=== PATIENT | female | born 1970 | race Caucasian/White ===

== ENCOUNTER → 2022-01-24 17:04 | Outpatient (CLI) | payer BC, SELFPAY ==
--- OUTSIDE RECORDS SUMMARY | 2022-01-24 17:10 | XMS_ITS | Encounter Summary ---
:1970 Author Organization [facility] Address [address] [place], [place] [id number] Care Team Providers Name Role Phone SantinoKrystle al ASHIA Primary Care Provider Encounter Details Date Type Department Care Team Description 03/23/2021 Travel Social History Tobacco Use Types Packs/Day Years Used Date Never Smoker Smokeless Tobacco: Never Used Alcohol Use Standard Drinks/Week Comments Yes 2 (1 standard drink = 0.6 oz pure alcoho l) couple of times weekly Alcohol Habits Answer Date Recorded How often do you have a drink containing 2-3 times a week 03/23/2021 alcohol? How many drinks containing alcohol do you have 1 or 2 03/23/2021 on a typical day when you are drinking? How often do you have six or more drinks on one Never 03/23/2021 occasion? Comment: couple of times weekly 03/23/2021 Social Isolation Answer Date Recorded In a typical week, how many times do you More than three luis alberto es a week 03/23/2021 talk on the phone with family, friends, or neighbors? How often do you get together with friends Twice a week 03/23/2021 or relatives? How often do you attend oriental orthodox or Never 2020 sikh services? Do you belong to any clubs or Yes 03/23/2021 organizations such as oriental orthodox groups, unions, fraternal or athletic groups, or school groups? How often do you attend meetings of the More than 4 times pe r year 03/23/2021 clubs or organizations you belong to? Are you now , , , 03/23/2021 , never or living with a partner? Physical Activity Answer Date Recorded On average, how many days per week do you engage in moderate to 4 days 03/23/2021 strenuous exercise (like walking fast, running, jogging, dancing, swimming, biking, or other activities that cause a light or heavy sweat)? On average, how many minutes do you engage in exercise at th is 50 min 03/23/2021 level? Stress Answer Date Recorded Do you feel stress - tense, restless, nervous, or Only a lit tle 03/23/2021 anxious, or unable to sleep at night because your mind is troubled all the time - these days? Financial Resource Strain Answer Date Recorded How hard is it for you to pay for the very basics like Not h deena at all 03/23/2021 food, housing, medical care, and heating? Intimate Partner Violence Answer Date Recorded Within the last year, have you been afraid of your partner o r No 03/23/2021 ex-partner? Within the last year, have you been humiliated or emotionall y No 03/23/2021 abused in other ways by your partner or ex-partner? Within the last year, have you been kicked, hit, slapped, or No 03/23/2021 otherwise physically hurt by your partner or ex-partner? Within the last year, have you been raped or forced to have any No 03/23/2021 kind of sexual activity by your partner or ex-partner? Food Insecurity Answer Date Recorded Within the past 12 months, you worried that your food would Never true 03/23/2021 run out before you got money to buy more. Within the past 12 months, the food you bought just didn't N ever true 03/23/2021 last and you didn't have money to get more. Transportation Needs Answer Date Recorded In the past 12 months, has lack of transportation kept you f rom No 03/23/2021 medical appointments or from getting medications? In the past 12 months, has lack of transportation kept you f rom No 03/23/2021 meetings, work, or getting things needed for daily living? Housing Stability Answer Date Recorded In the last 12 months, was there a time when you were not ab le No 03/23/2021 to pay the mortgage or rent on time? In the last 12 months, how many places have you lived? 1 03/23/2021 In the last 12 months, was there a time when you did not hav e a No 03/23/[address] to sleep or slept in a residential (including now)? Sex Assigned at Date Recorded Not on file COVID-19 Exposure Response Date Recorded In the last month, have you been in contact with No / Unsure 03/23/2021 12:55 PM EDT someone who was confirmed or suspected to have Coronavirus / COVID-19? documented as of this encounter Plan of Treatment Upcoming Encounters Date Type Specialty Care Team Description 03/24/2022 Office Visit Family Medicine Krystle De F NP [address] [place] [address] 2022 (Wo rk) documented as of this encounter Visit Diagnoses Not on filedocumented in this encounter Care Teams Bag Turner Relationship Specialty Start Date End Date Krystle De FNP PCP - General Nurse Practitioner 02/05/[address] [place] [phone] documented as of this encounter
--- OUTSIDE RECORDS SUMMARY | 2022-01-24 17:10 | XMS_ITS | Encounter Summary ---
:1970 Author Organization [facility] Address [address] [place], [place] [id number] Care Team Providers Name Role Phone SantinoKrystle al ASHIA Primary Care Provider Encounter Details Date Type Department Care Team Description 03/25/2021 Travel Social History Tobacco Use Types Packs/Day [...] or relatives? How often do you attend mormonism or Never 2020 presybeterian services? Do you belong to any clubs or Yes 03/23/2021 organizations such as mormonism groups, unions, fraternal or athletic groups, or [...] place to sleep or slept in a intermediate (including now)? Sex Assigned at Date Recorded Not on file COVID-19 Exposure Response Date Recorded In the last month, have you been in contact with No / Unsure 03/25/2021 7:18 AM EDT someone who was confirmed or suspected to have Coronavirus / COVID-19? documented as of this encounter Plan of Treatment Upcoming Encounters Date Type Specialty Care Team Description 03/24/2022 Office Visit Family Medicine Krystle De F NP [address] [place] [phone] (Wo rk) documented as of this encounter Visit Diagnoses Not on filedocumented in this encounter Care Teams Dev Ops Engineer Relationship Specialty Start Date End Date Krystle De FNP PCP - General Nurse Practitioner 02/05/[address] [place] [id number] documented as of this encounter
--- OUTSIDE RECORDS SUMMARY | 2022-01-24 17:10 | XMS_ITS | Encounter Summary ---
:1970 Author Organization [facility] Address [address] [place] [address] Care Team Providers Name Role Phone Krystle De Primary Care Provider Reason for Visit Reason Comments Annual Exam Encounter Details Date Type Department Care Team Description 03/23/[address] [facility] Krystle Marte FNP Routine medical exam (Primary Dx); [address] [place] [address] [phone] Social History Tobacco Use Types Packs/Day Years [...] or relatives? How often do you attend yazidi or Never 2020 jehovah's witness services? Do you belong to any clubs or Yes 03/23/2021 organizations such as yazidi groups, unions, fraternal or athletic groups, or [...] place to sleep or slept in a alf (including now)? Sex Assigned at Date Recorded Not on file COVID-19 Exposure Response Date Recorded In the last month, have you been in contact with No / Unsure 03/23/2021 12:55 PM EDT someone who was confirmed or suspected to have Coronavirus / COVID-19? documented as of this encounter Last Filed Vital Signs Vital Sign Reading Time Taken Comments Blood Pressure 122/78 03/23/2021 1:04 PM EDT Pulse 69 03/23/2021 1:04 PM EDT Temperature 36.2 ??C (97.1 ??F) 03/23/2021 1:04 PM EDT Respiratory Rate 16 03/23/2021 1:04 PM EDT Oxygen Saturation 98% 03/23/2021 1:04 PM EDT Inhaled Oxygen Concentration - - Weight 63.5 kg (140 lb) 03/23/2021 1:04 PM EDT Height 171.5 cm (5' 7.5) 03/23/2021 1:04 PM EDT Body Mass Index 21.6 03/23/2021 1:04 PM EDT documented in this encounter Patient Instructions Patient InstructionsSuASHIA Abrams - 03/23/2021 1:00 PM EDT pls get blood work done Will refer for colonoscopy Doing well F/u here in one year, sooner if problems or concerns documented in this encounter Progress Notes ASHIA Wall - 03/23/2021 1:00 PM EDT Subjective Patient ID: Trina Chandana is a 50 y.o. female. Chief Complaint Patient presents with ??? Annual Exam Here for PE Feeling well no chest pain or SOB no dizziness or headaches no nausea, vomiting, no change in bowels The following portions of the patient's chart were reviewed in this encounter and updated as appropriate: Tobacco Allergies Meds Problems Med Hx Surg Hx Fam Hx Review of Systems Constitutional: Negative. HENT: Negative. Respiratory: Negative. Cardiovascular: Negative. Neurological: Negative. Psychiatric/Behavioral: Negative. Objective Physical Exam Vitals and nursing note reviewed. Constitutional: Appearance: Normal appearance. HENT: Head: Normocephalic and atraumatic. Right Ear: Tympanic membrane, ear canal and external ear normal. Left Ear: Tympanic membrane, ear canal and external ear normal. Nose: Nose normal. Mouth/Throat: Mouth: Mucous membranes are moist. Pharynx: Oropharynx is clear. Eyes: Conjunctiva/sclera: Conjunctivae normal. Pupils: Pupils are equal, round, and reactive to light. Cardiovascular: Rate and Rhythm: Normal rate and regular rhythm. Pulses: Normal pulses. Heart sounds: Normal heart sounds. Pulmonary: Effort: Pulmonary effort is normal. Breath sounds: Normal breath sounds. Abdominal: General: Abdomen is flat. Bowel sounds are normal. Palpations: Abdomen is soft. Tenderness: There is no abdominal tenderness. Musculoskeletal: General: Normal range of motion. Cervical back: Neck supple. Lymphadenopathy: Cervical: No cervical adenopathy. Skin: General: Skin is warm and dry. Neurological: General: No focal deficit present. Mental Status: She is alert and oriented to person, place, and time. Psychiatric: Mood and Affect: Mood normal. Behavior: Behavior normal. Thought Content: Thought content normal. Judgment: Judgment normal. Assessment/Plan Diagnoses and all orders for this visit: Routine medical exam - CBC and differential; Future - Comprehensive metabolic panel; Future - Lipid panel; Future - TSH; Future Colon cancer screening - Ambulatory referral to Gastroenterology; Future documented in this encounter Plan of Treatment Upcoming Encounters Date Type Specialty Care Team Description 03/24/2022 Office Visit Family Medicine Krystle De F NP [address] [place] [address] (Wo rk) documented as of this encounter Results TSH (03/25/2021 7:39 AM EDT) athologist Signature TSH 1.46 0.36 - 3.74 03/25/2021 [facility] uIU/ml 9:49 AM EDT Comment: Concentrations of Biotin above 100 ng/mL can potentially result in interference. The above 1 analytes were performed by [facility] [address] [place] [address],[id number],[place] [address] Specimen Anatomical Collection Method Collection Time Receive d Time (Source) Location / / Volume Laterality Serum or Plasma 03/25/2021 7:39 AM 2020 9:22 EDT AM EDT K[facility]le De [facility] Performing Organization Address City/State/ZIP Code Phon e Number [facility] [address] [place] [address] OPHELIA NEGRON MD Lipid panel (03/25/2021 7:39 AM EDT) athologist Signature Triglycerides 64 30 - 200 03/25/2021 [facility] mg/dl 9:49 AM EDT LABORATORIES Comment: N-Acetylcysteine (NAC) and Metamizole bynum ve the potential to falsely depress Triglyceride results. ?? Baseline values before medication admins tration are recommended. Cholesterol 118 0 - 200 mg/dl 03/25/2021 9:49 AM EDT [facility] HDL Cholesterol 64 30 - 85 mg/dl 03/25/2021 9:49 AM E DT [facility] Comment: N-Acetylcysteine (NAC) and Metamizole bynum ve the potential to falsely depress HDL Cholesterol results. ?? Baseline values before medication admins tration are recommended. LDL Cholesterol 41.2 0.0 - 100.0 03/25/2021 9:49 AM [facility] mg/dl EDT Cholesterol/ HDL Ratio 1.8 0.0 - 5.0 03/25/2021 9:49 A M [facility] EDT LDL/HDL Ratio 0.6 03/25/2021 9:49 AM [facility] EDT Comment: The above 6 analytes were performed by [facility] [address] [facility], ,[place] [address] Specimen Anatomical Collection Method Collection Time Receive d Time (Source) Location / / Volume Laterality Serum or Plasma 03/25/2021 7:39 AM 2020 9:22 EDT AM EDT Krystle De [facility] BLOOD ORDERABLES Performing Organization Address City/State/ZIP Code Phon e Number [facility] [address] [place] [address] OPHELIA NEGRON MD (ABNORMAL) Comprehensive metabolic panel (03/25/2021 7:39 AM EDT) P athologist Signature AST 11 (L) 15 - 37 03/25/2021 [facility] IU/L 9:49 AM EDT Comment: Sulfasalazine and sulfapyridine have the potential to falsely depress Aspartate Aminotransferase results. ?? Baseline values before medication admini stration are recommended. ALT 13 13 - 56 IU/L 03/25/2021 9:49 AM EDT [facility] Comment: Sulfasalazine and sulfapyridine have the potential to falsely depress Alanine Aminotransferase results. ?? Baseline values before medication admini stration are recommended. Alkaline Phosphatase 58 50 - 136 mIU/ml 03/25/2021 9: 49 AM [facility] EDT Total Bilirubin 0.50 0.20 - 1.00 mg/dl 03/25/2021 9:49 AM [facility] EDT Blood Urea Nitrogen 13 7 - 18 mg/dl 03/25/2021 9:49 A M [facility] EDT Creatinine 0.80 0.51 - 0.95 mg/dl 03/25/2021 9:49 AM [facility] EDT Comment: N-Acetylcysteine (NAC) and Metamizole bynum ve the potential to falsely depress Creatinine results. ?? Baseline values before medication admins tration are recommended. Patients undergoing treatment with pheni ndione will have falsely depressed results. Patients on phenindione therapy should b e tested with an alternative CREA method. Toxic levels of acetaminophen may lead t o falsely depressed results for patient samples. Glomerular Filtration 76.00 mL/min/1.73m2 03/25/2021 9:4 9 AM [facility] Rate EDT Comment: GFR Reference Ranges: Normal Function or Mild Renal Disease,i f clinically at risk: >or= 60 Moderately decreased: 30 - 59 Severely decreased: 15 - 29 Renal Failure: <15 Please note that the MDRD equation requi res an additional adjustment for -Americans (multiply the GFR resu lt by 1.210). Glomarular Filtration Rate (GFR) is jeffrey mated based on the MDRD equation, which assumes a steady state f or creatinine (Rand Int Med 139/2 137-149, 2002), as r ecommended by the National Kidney Disease Education Program in conj unction with the National Institutes of Health a nd the National Kidney Foundation. The Edwards method used in terence culating this result is traceable to IDMS standards. Glucose 78 70 - 110 mg/dl 03/25/2021 9:49 AM EDT [facility] Comment: Sulfasalazine has the potential to false ly depress Glucose results. Sulfapyridine has the potential to false ly elevate Glucose results. Baseline values before medication admini stration are recommended. Calcium 9.2 8.5 - 10.1 mg/dl 03/25/2021 9:49 AM EDT [facility] Total Protein 7.0 6.4 - 8.2 g/dl 03/25/2021 9:49 AM ED T [facility] Albumin 4.0 3.4 - 5.0 g/dl 03/25/2021 9:49 AM EDT [facility] Sodium 140 136 - 145 mEq/L 03/25/2021 9:49 AM EDT [facility] Potassium 4.2 3.5 - 5.1 mEq/L 03/25/2021 9:49 AM EDT [facility] Chloride 107.0 98.0 - 107.0 mEq/L 03/25/2021 9:49 AM ED T [facility] Carbon Dioxide 28.4 21.0 - 32.0 mMol/L 03/25/2021 9: 49 AM EDT [facility] Anion Gap 8.8 7.0 - 15.0 03/25/2021 9:49 AM EDT [facility] Comment: The above 16 analytes were performed by [facility] [address] [facility] [id number],[place] [address] Specimen Anatomical Collection Method Collection Time Receive d Time (Source) Location / / Volume Laterality Serum or Plasma 03/25/2021 7:39 AM 2020 9:22 EDT AM EDT Krystle Santino [facility] BLOOD ORDERABLES Performing Organization Address City/State/ZIP Code Phon e Number [facility] [place] [address] OPHELIA NEGRON MD (ABNORMAL) CBC and differential (03/25/2021 7:39 AM EDT) [facility] Method Time Signature WBC 4.33 (L) 4.80 - 03/25/2021 [facility] 10.00 9:45 AM EDT LABORATORIES x1000/ul RBC 4.58 4.20 - 03/25/2021 [facility] 5.40 9:45 AM EDT LABORATORIES x1Mil/ul Hemoglobin 13.7 12.0 - 03/25/2021 [facility] 16.0 g/dl 9:45 AM EDT LABORATORIES Hematocrit 42.0 37.0 - 03/25/2021 [facility] 47.0 % 9:45 AM EDT LABORATORIES MCV 91.7 81.0 - 03/25/2021 [facility] 99.0 fL 9:45 AM EDT LABORATORIES MCH 29.9 27.0 - 03/25/2021 [facility] 31.0 pg 9:45 AM EDT LABORATORIES MCHC 32.6 32.2 - 03/25/2021 [facility] 37.0 g/dl 9:45 AM EDT LABORATORIES RDW 13.1 11.5 - 03/25/2021 [facility] 14.5 % 9:45 AM EDT LABORATORIES Platelet Count 202 130 - 400 03/25/2021 [facility] x1000/ul 9:45 AM EDT LABORATORIES MPV 10.4 9.4 - 03/25/2021 [facility] 12.4 fL 9:45 AM EDT LABORATORIES Neutrophils 39.4 (L) 40.0 - 03/25/2021 [facility] 74.0 % 9:45 AM EDT LABORATORIES Lymphocytes 44.3 19.0 - 03/25/2021 [facility] 48.0 % 9:45 AM EDT LABORATORIES Monocytes 12.7 (H) 3.4 - 9.0 03/25/2021 [facility] % 9:45 AM EDT LABORATORIES Eosinophils 1.8 0.0 - 7.0 03/25/2021 [facility] % 9:45 AM EDT LABORATORIES Basophils 1.6 0.0 - 2.0 03/25/2021 [facility] % 9:45 AM EDT LABORATORIES Immature 0.2 0.0 - 0.5 03/25/2021 [facility] Granulocytes % 9:45 AM EDT LABORATORIES Nucleated RBCs 0.00 0.00 - 03/25/2021 [facility] 0.20 % 9:45 AM EDT LABORATORIES Abs. Neutrophils 1.70 (L) 1.92 - 03/25/2021 [facility] 8.31 9:45 AM EDT LABORATORIES x1000/ul Abs. Lymphocyte 1.92 1.20 - 03/25/2021 [facility] 3.70 9:45 AM EDT LABORATORIES x1000/ul Abs. Monocytes 0.55 0.14 - 03/25/2021 [facility] 0.97 9:45 AM EDT LABORATORIES x1000/ul Abs. 0.08 0.00 - 03/25/2021 [facility] ??Eosinophils 0.76 9:45 AM EDT LABORATORIES x1000/ul Abs. ??Basophils 0.07 0.00 - 03/25/2021 [facility] 0.22 9:45 AM EDT LABORATORIES x1000/ul Abs. Immature 0.01 0.00 - 03/25/2021 [facility] Gran. 0.02 9:45 AM EDT LABORATORIES x1000/ul Abs. Nucleated 0.00 0.00 - 03/25/2021 [facility] RBCs 0.02 9:45 AM EDT LABORATORIES x1000/ul Comment: The above 24 analytes were performed by [facility] [address] [place] [address],[facility]#: [id number],[place] [address] Specimen Anatomical Collection Method Collection Time Receive d Time (Source) Location / / Volume Laterality Whole Blood 03/25/2021 7:39 AM 9:22 EDT AM EDT [facility] LAB BLOOD ORDERABLES Performing Organization Address City/State/ZIP Code Phon e Number [facility] [address] [place] [address] OPHELIA NEGRON MD documented in this encounter Visit Diagnoses Diagnosis Routine medical exam - Primary Routine general medical examination [facility] a [facility] Colon cancer screening Special screening for malignant neoplasm s, colon documented in this encounter Care Teams High School Business Teacher Relationship Specialty Start Date End Date Krystle De FNP PCP - General Nurse Practitioner 02/05/[address] [place] [id number] documented as of this encounter
--- OUTSIDE RECORDS SUMMARY | 2022-01-24 17:10 | XMS_ITS | Encounter Summary ---
:1970 Author Organization [facility] Address [address] [place], [place] [address] Care Team Providers Name Role Phone Santino Krystle ASHIA Primary Care Provider Encounter Details Date Type Department Care Team Description 03/25/2021 Hospital Encounter [facility] Routine medical exam [facility] [address] [place] [address] [phone] Social History Tobacco Use Types Packs/Day Years [...] or relatives? How often do you attend sabianist or Never 2020 denominational services? Do you belong to any clubs or Yes 03/23/2021 organizations such as sabianist groups, unions, fraternal or athletic groups, or [...] / COVID-19? documented as of this encounter Medications at Time of Discharge Medication Sig Dispensed Refills Start Date End Date mv-min/iron/folic/calcium/v Take 1 tablet by 0 itK (WOMEN'S MULTIVITAMIN mouth 1 (one) time ORAL) each day. documented as of this encounter Plan of Treatment Upcoming Encounters Date Type Specialty Care Team Description 03/24/2022 Office Visit Family Medicine Krystle De F NP [address] [place] [address] (Wo rk) documented as of this encounter Procedures Procedure Name Priority Date/Time Associated Comments Diagnosis HC CBC W/ DIFFERENTIAL Routine 03/25/2021 7:39 AM Routine medi terence Results for this EDT exam procedure are i n the results section. TSH Routine 03/25/2021 7:39 AM Routine medical Result s for this EDT exam procedure are i n the results section. LIPID PANEL Routine 03/25/2021 7:39 AM Routine medical Result s for this EDT exam procedure are i n the results section. COMPREHENSIVE Routine 03/25/2021 7:39 AM Routine medical Resul ts for this METABOLIC PANEL EDT exam procedure ar e in the results section. documented in this encounter Results TSH (03/25/2021 7:39 AM EDT) athologist Signature TSH 1.46 0.36 - 3.74 03/25/2021 [facility] uIU/ml 9:49 AM EDT Comment: Concentrations of Biotin above 100 ng/mL can potentially result in interference. The above 1 analytes were performed by [facility] [address] [place] [address], ,[place] [address] Specimen Anatomical Collection Method Collection Time Receive d Time (Source) Location / / Volume Laterality Serum or Plasma 03/25/2021 7:39 AM 2020 9:22 EDT AM EDT Krystle Santino [facility] BLOOD ORDERABLES Performing Organization Address [facility] Phon e Number [facility] [address] [place] [address] OPHELIA NEGRON MD Lipid panel (03/25/2021 7:39 AM EDT) P athologist Signature Triglycerides 64 30 - 200 03/25/2021 [facility] mg/dl 9:49 AM EDT LABORATORIES Comment: N-Acetylcysteine (NAC) and Metamizole bynum ve the potential to falsely depress Triglyceride results. ?? Baseline values before medication admins tration are recommended. Cholesterol 118 0 - 200 mg/dl 03/25/2021 9:49 AM EDT [facility] HDL Cholesterol 64 30 - 85 mg/dl 03/25/2021 9:49 AM E DT [facility] Comment: N-Acetylcysteine (NAC) and Metamizole bynum ve the potential to falsely depress HDL Cholesterol results. ?? Baseline values before medication admins tration are recommended. LDL Cholesterol 41.2 0.0 - 100.0 03/25/2021 9:49 AM [facility] mg/dl EDT Cholesterol/ HDL Ratio 1.8 0.0 - 5.0 03/25/2021 9:49 A M [facility] EDT LDL/HDL Ratio 0.6 03/25/2021 9:49 AM [facility] EDT Comment: The above 6 analytes were performed by [facility] [address] [place] [address], ,[place] [address] Specimen Anatomical Collection Method Collection Time Receive d Time (Source) Location / / Volume Laterality Serum or Plasma 03/25/2021 7:39 AM 2020 9:22 EDT AM EDT Krystle De [facility] BLOOD ORDERABLES Performing Organization Address City/[facility] Phon e Number [facility] [address] [place] [address] OPHELIA NEGRON MD (ABNORMAL) Comprehensive metabolic panel (03/25/2021 7:39 AM EDT) P athologist Signature AST 11 (L) 15 - 37 03/25/2021 [facility] IU/L 9:49 AM EDT Comment: Sulfasalazine and sulfapyridine have the potential to falsely depress Aspartate Aminotransferase results. ?? Baseline values before medication admini stration are recommended. ALT 13 13 - 56 IU/L 03/25/2021 9:49 AM EDT [facility] Comment: Sulfasalazine and sulfapyridine have the potential to falsely depress Alanine Aminotransferase results. ?? Baseline values before medication admini stration are recommended. Alkaline Phosphatase 58 50 - 136 mIU/ml 03/25/2021 9: 49 AM [facility] EDT Total Bilirubin 0.50 0.20 - 1.00 mg/dl 03/25/2021 9:49 AM [facility] EDT Blood Urea Nitrogen 13 7 - 18 mg/dl 03/25/2021 9:49 A M [facility] EDT Creatinine 0.80 0.51 - 0.95 mg/dl 03/25/2021 9:49 AM [facility] EDT Comment: N-Acetylcysteine (NAC) and [...] Filtration 76.00 mL/min/1.73m2 03/25/2021 9:4 9 AM [facility] Rate EDT Comment: GFR Reference Ranges: [...] a nd the National Kidney Foundation. The Mcdonald method used in terence culating this result is traceable to IDMS standards. Glucose 78 70 - 110 mg/dl 03/25/2021 9:49 AM EDT [facility] Comment: Sulfasalazine has the potential to false ly depress Glucose results. Sulfapyridine has the potential to false ly elevate Glucose results. Baseline values before medication admini stration are recommended. Calcium 9.2 8.5 - 10.1 mg/dl 03/25/2021 9:49 AM EDT [facility] Total Protein 7.0 6.4 - 8.2 g/dl 03/25/2021 9:49 AM ED T [facility] Albumin 4.0 3.4 - 5.0 g/dl 03/25/2021 9:49 AM EDT [facility] Sodium 140 136 - 145 mEq/L 03/25/2021 9:49 AM EDT [facility] Potassium 4.2 3.5 - 5.1 mEq/L 03/25/2021 9:49 AM EDT [facility] Chloride 107.0 98.0 - 107.0 mEq/L 03/25/2021 9:49 AM ED T [facility] Carbon Dioxide 28.4 21.0 - 32.0 mMol/L 03/25/2021 9: 49 AM EDT [facility] Anion Gap 8.8 7.0 - 15.0 03/25/2021 9:49 AM EDT [facility] Comment: The above 16 analytes were performed by [facility] [address] [place] [address], ,[place] [address] Specimen Anatomical Collection Method Collection Time Receive d Time (Source) Location / / Volume Laterality Serum or Plasma 03/25/2021 7:39 AM 2020 9:22 EDT AM EDT Krystle De [facility] BLOOD ORDERABLES Performing Organization Address City/State/ZIP Code Phon e Number [facility] [address] [place] [address] OPHELIA NEGRON MD (ABNORMAL) CBC and differential (03/25/2021 7:39 AM EDT) [facility] Method Time Signature WBC 4.33 (L) [...] The above 24 analytes were performed by [facility] [address] [place] [address],[facility] [id number],[place] [address] Specimen Anatomical Collection Method Collection Time Receive d Time (Source) Location / / Volume Laterality Whole Blood 03/25/2021 7:39 AM 9:22 EDT AM EDT Krystle [facility] LAB BLOOD ORDERABLES Performing Organization Address City/State/ZIP Code Phon e Number [facility] [address] [place] [address] OPHELIA NEGRON MD documented in this encounter Visit Diagnoses Diagnosis Routine medical exam Routine general medical examination at a health care facility documented in this encounter Care Teams Supervisor Paste Mixing Relationship Specialty Start Date End Date Krystle De FNP PCP - General Nurse Practitioner 02/05/[address] [place] [phone] documented as of this encounter
--- OUTSIDE RECORDS SUMMARY | 2022-01-24 17:10 | XMS_ITS | Encounter Summary ---
:1970 Author Organization [facility] Address [address] [place] [address] Care Team Providers Name Role Phone Krystle De Primary Care Provider Encounter Details Date Type Department Care Team Description 04/01/2020 Telephone [facility] Krystle Marte FNP [address] [facility] [address] [place] [address] [phone] (Wo rk) Social History Tobacco Use Types Packs/Day Years Used Date Never Assessed Alcohol Habits Answer Date Recorded How often do you have a drink containing alcohol? 2-3 times a week 03/23/2021 How many drinks containing alcohol do you have on a 1 or 2 03/23/2021 typical day when you are drinking? How often do you have six or more drinks on one Never 03/23/2021 occasion? Comment: Not asked Social Isolation Answer Date Recorded In a typical week, how many times do you More than three luis alberto es a week 03/23/2021 talk on the phone with family, friends, or neighbors? How often do you get together with friends Twice a week 03/23/2021 or relatives? How often do you attend restorationism or Never 2020 voodoo services? Do you belong to any clubs or Yes 03/23/2021 organizations such as restorationism groups, unions, fraternal or athletic groups, or [...] place to sleep or slept in a fdc (including now)? Sex Assigned at Date Recorded Not on file documented as of this encounter Miscellaneous Notes Telephone Encounter - Sharona Pineda RN - 04/01/2020 2:07 PM EDT Sending out a letter documented in this encounter Plan of Treatment Upcoming Encounters Date Type Specialty Care Team Description 03/24/2022 Office Visit Family Medicine Krystle De F NP [address] [place] [address] (Wo rk) documented as of this encounter Visit Diagnoses Not on filedocumented in this encounter Care Teams Insurance Adviser Relationship Specialty Start Date End Date Krystle De FNP PCP - General Nurse Practitioner 02/05/[address] [place] [phone] documented as of this encounter
--- OUTSIDE RECORDS SUMMARY | 2022-01-24 17:10 | XMS_ITS | Clinical Summary ---
:1970 Author Organization [facility] Address [address] [place], [place] [id number] Care Team Providers Name Role Phone Krystle De Primary Care Provider Allergies No known active allergies Medications Medication Sig Dispensed Refills Start Date End Date Status mv-min/iron/folic/calci Take 1 tablet by 0 Active um/vitK (WOMEN'S mouth 1 (one) MULTIVITAMIN ORAL) time each day. Active Problems Problem Noted Date Routine medical exam 03/23/2021 Dense breasts 03/23/2021 Immunizations Name Administration Dates Next Due Pfizer SARS-CoV-2 Vaccination Adult (Purple Cap) 10/17/2020, 09/26/2020 Td 03/23/2015 Family History Medical History Relation Comments No Known Problems Brother No Known Problems Daughter Heart disease Father Dementia Mother Cancer Sister breast cancer 5 year s ago Relation Status Comments Brother Alive Daughter Alive Father (Age 86) Mother Alive Sister Alive Social History Tobacco Use Types Packs/Day Years [...] or relatives? How often do you attend orthodoxy or Never 2020 judaism services? Do you belong to any clubs or Yes 03/23/2021 organizations such as orthodoxy groups, unions, fraternal or athletic groups, or [...] place to sleep or slept in a halfway (including now)? Sex Assigned at Date Recorded Not on file Last Filed Vital Signs Vital Sign Reading [...] Mass Index 21.6 03/23/2021 1:04 PM EDT Plan of Treatment Upcoming Encounters Date Type Specialty Care Team Description 03/24/2022 Office Visit Family Medicine Krystle De F NP [address] [place] [address] (Wo rk) Health Maintenance Due Date Last Done Comments Colonoscopy 1970 Colorectal Cancer Screening 1970 FIT-DNA 1970 FOBT Annual 1970 Sigmoidoscopy 1970 MMR Vaccines (1 of 1 - 12/25/1971 Standard series) Varicella Vaccines (1 of 2 - 12/25/1971 2-dose childhood series) Pneumococcal Vaccine: 65+ 1976 Years (1 of 4 - PCV13) DTaP,Tdap,and Td Vaccines (2 04/20/2015 03/23/2015 - Tdap) COVID-19 Vaccine (3 - Pfizer 11/14/2020 10/17/2020, 021 risk 4-dose series) Influenza Vaccine (Season 03/10/2022 Ended) Mammogram (every 2 years) 03/17/2022 03/17/2020, 06/23/2016 , 01/07/2016, Additional history exists Cervical Cancer Screening 09/20/2022 09/20/2017, 09/20/2017 HIB Vaccines Aged Out No longer eligib le based on patient 's age to complete this topic Hepatitis A Vaccines Aged Out No longer e ligible based on patient 's age to complete this topic Hepatitis B Vaccines Aged Out No longer e ligible based on patient 's age to complete this topic IPV Vaccines Aged Out No longer eligib le based on patient 's age to complete this topic Insurance Payer Benefit Plan / Subscriber ID Effective Dates Phone Addre ss Type Group [facility] DENISE [id number] 2015-Present [address] [address] [place] [phone] (Work) Advance Directives Documents on File Type Date Recorded Patient Dam Attendant Explanati on Advanced Directive - Healthcare 03/25/2021 7:19 AM spouse Proxy/Agent Care Teams Wardrobe Coordinator Relationship Specialty Start Date End Date Krystle De FNP PCP - General Nurse Practitioner 02/05/[address] [place] [phone]
--- OUTSIDE RECORDS SUMMARY | 2022-01-24 17:11 | XMS_ITS | Clinical Summary ---
:1970 Author Organization [facility] Address [address] [place] [phone] Phone Care Team Providers Name Role Phone Lucy Webb MD Unavailable Mike Bernstein MD Primary Care Provider [phone] Kelly Gatica GAS SCRUBBER OPERATOR Unavailable Allergies No known active allergies Medications Be aware that medications may not be up to date as of this document. ALWAYS verify current medications with the patient. Medication Sig Dispensed Refills Start Date End Date Status Daily Angel (THERAGRAN) Take 1 tablet by 0 Active per tablet mouth daily Active Problems Problem Noted Date Encounter for screening mammogram for high-risk patien t 03/05/2018 Dense breasts 03/05/2018 Breast cancer screening, high risk patient 03/05/2018 S/P RIGHT breast 1200 position US core biopsy 05/2013 : Fibroadenoma 06/09/2017 S/P LEFT breast 0600 position US core biopsy 05/2013: Fibroadenoma 06/09/2017 Family history of breast cancer; sister age 45 017 S/P left breast biopsy 2015, Dr Do; benign tubular adenoma, no atypia 06/05/2017 Bilateral breast cysts 06/05/2017 Immunizations Name Administration Dates Next Due Family History Medical History Relation Name Comments Prostate cancer Father Anuerysm Maternal Grandmother Glaucoma Mother Hypertension Mother Stroke Paternal Grandmother Breast cancer Sister Relation Name Status Comments Daughter Alive Father Alive Maternal Grandfather Maternal Grandmother Maternal Uncle Mother Alive Paternal Grandfather Paternal Grandmother Sister Alive Son Alive Social History Tobacco Use Types Packs/Day Years Used Date Never Smoker Smokeless Tobacco: Never Used Alcohol Use Standard Drinks/Week Comments Yes 0 (1 standard drink = 0.6 oz pure alcoho l) socially Alcohol Habits Answer Date Recorded How often do you have a drink containing alcohol? Not asked How many drinks containing alcohol do you have on a typical Not asked day when you are drinking? How often do you have six or more drinks on one occasion? No t asked Comment: socially 06/05/2017 Sex Assigned at Date Recorded Not on file Job Start Date Occupation Industry Not on file Not on file Not on file Last Filed Vital Signs Vital Sign Reading Time Taken Comments Blood Pressure 131/75 05/11/2021 11:26 AM EDT Pulse 64 05/11/2021 11:26 AM EDT Temperature 35.8 ??C (96.4 ??F) 05/11/2021 11:26 AM EDT Respiratory Rate 19 03/13/2019 10:54 AM EDT Oxygen Saturation 97% 03/13/2019 10:54 AM EDT Inhaled Oxygen Concentration - - Weight 64.9 kg (143 lb) 05/11/2021 11:26 AM EDT Height 175.3 cm (5' 9) 05/11/2021 11:26 AM EDT Body Mass Index 21.12 05/11/2021 11:26 AM EDT Plan of Treatment Upcoming Encounters Date Type Specialty Care Team Description 05/12/2022 Office Visit General Surgery Kelly Gatica, LOLA [address] [place] [address] (Wo rk) Health Maintenance Due Date Last Done Comments Colon Cancer Screening 1970 Colonoscopy Colon Cancer Screening 1970 Fecal DNA Colon Cancer Screening 1970 Fecal Occult Blood Test Colorectal Cancer Screening 1970 Sigmoidoscopy Every 5 Years 1970 HIV Testing Offered (13-64 [birth year]25[birth year]1983 y/o) DTap / TDap / Td (1 - Tdap) 1989 PAP SMEAR 12/25/1991 Zoster Recombinant Vaccine 2020 (RZV) (Shingrix) (1 of 2) COVID-19 Vaccine (3 - 03/19/2021 10/17/2020, 09/26/2020 Booster for Pfizer series) PHQ Depression Screening 07/10/2021 Influenza Vaccine 02/07/2022 Mammogram 05/11/2023 05/11/2021, 03/17/2020, 03/07/2019, Additional history exists Mammogram Historical Discontinued 05/11/2021, 03/17/2020, 03/07/2019, Additional history exists Pneumococcal Vaccine Aged Out No longer e ligible based on patient 's age to complete this topic Procedures Procedure Name Priority Date/Time Associated Diagnosis Comme nts MRI BREAST BILATERAL W Routine 11/16/2021 Breast cancer Resu lts for this WO CONTRAST screening, high risk procedu re are in the patient results section. Dense breasts Abnormal finding on breast imaging from Last 3 Months Results MRI breast bilateral without and with IV contrast w/CAD (11/16/2021) Anatomical Region Laterality Modality Breast Bilateral Magnetic Resonance Narrative This result has an attachment that is no t available. Performing Organization Address City/State/ZIP Code Phon e Number [facility] from Last 3 Months Insurance Payer Benefit Plan / Subscriber ID Effective Dates Phone Addre ss Type Group [employer] [id number] 2015-Dale [phone] [address] [address] t [address] [place] [phone] [employer] [id number] 2015-[place]ale [address] [address] t [place] [id number] Care Teams Operations Professional Relationship Specialty Start Date End Date Mike Bernstein, PCP - General Internal Medicine 12/28/[address] [phone] Lucy Webb, Consulting Physician Obstetrics and 06/08/17 MD Gynecology [address] [place] [address] Kelly Gatica NP Nurse Practitioner Family Medicine 10/20/[address] [place] [address], [address] [place] [address]
--- OUTSIDE RECORDS SUMMARY | 2022-01-24 17:11 | XMS_ITS | Encounter Summary ---
:1970 Author Organization [facility] Address [address] [place] [phone] Phone Care Team Providers Name Role Phone Unavailable Primary Care Provider Unavailable Encounter Details Date Type Department Care Team Description 02/09/2017 Orders Only Health Information Provider, Historical, Management [address] [place] [phone] [place] [address] [phone] Social History Tobacco Use Types Packs/Day Years Used Date Never Assessed Sex Assigned at Date Recorded Not on file Job Start Date Occupation Industry Not on file Not on file Not on file documented as of this encounter Plan of Treatment Upcoming Encounters Date Type Specialty Care Team Description 05/12/2022 Office Visit General Surgery Kelly Gatica, LOLA [address] [place], [place] [id number] (Wo rk) documented as of this encounter Procedures Procedure Name Priority Date/Time Associated Diagnosis Comme nts MAMMO SCAN LINK Routine 01/31/2017 IMAGING SCAN Routine 01/31/2017 MAMMO SCAN LINK Routine 06/23/2016 IMAGING SCAN Routine 06/23/2016 LAB SCAN Routine 01/27/2016 documented in this encounter Results MAMMO SCAN LINK (01/31/2017) Anatomical Region Laterality Modality Mammography Narrative This result has an attachment that is no t available. MAMMO SCAN LINK (06/23/2016) Anatomical Region Laterality Modality Mammography Narrative This result has an attachment that is no t available. LAB SCAN LINK (01/27/2016) Narrative This result has an attachment that is no t available. documented in this encounter Visit Diagnoses Not on filedocumented in this encounter
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
--- OUTSIDE RECORDS SUMMARY | 2022-01-24 17:11 | XMS_ITS | Encounter Summary ---
:1970 Author Organization [facility] Address [address] [place] [address] Care Team Providers Name Role Phone Krystle De Primary Care Provider Encounter Details Date Type Department Care Team Description 09/20/2017 Abstract [facility] Krystle Marte FNP [address] [facility] [address] [place] [address] [place] [address] [phone] (Wo rk) Social History Tobacco Use Types [...] or relatives? How often do you attend mu-ism or Never 2020 scientology services? Do you belong to any clubs or Yes 03/23/2021 organizations such as mu-ism groups, unions, fraternal or athletic groups, or [...] place to sleep or slept in a correction (including now)? Sex Assigned at Date Recorded [...] Visit Family Medicine Krystle De F NP [address] [place] [address] (Wo rk) documented as of this encounter Procedures Procedure Name Priority Date/Time Associated Diagnosis Comme nts PAP MONO LAYER SCREEN (PAP SMEAR) Routine 09/20/2017 documented in this encounter Results Pap [place] Layer Screen (Pap Smear) (09/20/2017) Specimen (Source) Anatomical Location Collection Method / Collectio n Time Received Time / Laterality Volume Cervical 09/20/2017 Narrative This result has an attachment that is no t available. Historical Provider LAB CYTOLOGY ORDERABLES documented in this encounter Visit Diagnoses Not on filedocumented in this encounter Care Teams Press Washer Relationship Specialty Start Date End Date Krystle De FNP PCP - General Nurse Practitioner 02/05/[address] [place] [address] documented as of this encounter
--- OUTSIDE RECORDS SUMMARY | 2022-01-24 17:11 | XMS_ITS | Encounter Summary ---
:1970 Author Organization [facility] Address [address] [place] [address] Phone Care Team Providers Name Role Phone Lucy Webb MD Unavailable Mike Bernstein MD Primary Care Provider [phone] Encounter Details Date Type Department Care Team Description 04/02/2020 Telephone [facility] Physicians Sa jake Gatica NP Surgical Services - [address] [place] [address] [facility] [place], [place] [address] [phone] Social History Tobacco Use Types Packs/Day Years [...] on file documented as of this encounter Functional Status Functional Status Response [...] making decisions? documented as of this encounter Miscellaneous Notes Telephone Encounter - Kelly Gatica NP - 04/02/2020 12:24 PM EDT Received final px report: Benign. I called and spoke with Trina. Pathologic findings may be concordant with radiographic findings. Six month follow up ultrasound is recommended of left breast - she is already scheduled for this - we will see her then. documented in this encounter Plan of Treatment Upcoming Encounters Date Type Specialty Care Team Description 05/12/2022 Office Visit General Surgery Kelly Gatica NP [address] [place] [address] (Wo rk) documented as of this encounter Visit Diagnoses Not on filedocumented in this encounter Care Teams Employee Relation Manager Relationship Specialty Start Date End Date Mike Bernstein, PCP - General Internal Medicine 12/28/[address] [place] [phone] Lucy Webb, Consulting Physician Obstetrics and 06/08/[address] [place] [address] [phone] documented as of this encounter
--- OUTSIDE RECORDS SUMMARY | 2022-01-24 17:11 | XMS_ITS | Encounter Summary ---
:1970 Author Organization [facility] Address [address] [place] [address] Phone Care Team Providers Name Role Phone CharlesDebbie gonzalez Dylan ANG Primary Care Provider Lucy Webb MD Unavailable Mike Bernstein MD Primary Care Provider [phone] Kelly Gatica NP Unavailable Encounter Details Date Type Department Care Team Description 03/05/2018 Orders Only [facility] Marce Smith, MSN, Encounter for screening mammogram for high-risk patient; Physicians Surgical ANP-C Dense breasts Services - [address] [place], [place] [address]s[place] [facility] [address] [place] [address] [address] [place] [address] Social History Tobacco Use Types Packs/Day Years [...] making decisions? documented as of this encounter Plan of Treatment Upcoming Encounters Date Type Specialty Care Team Description 05/12/2022 Office Visit General Surgery Kelly Gatica, LOLA [address] [phone] (Wo rk) documented as of this encounter Procedures Procedure Name Priority Date/Time Associated Diagnosis Comme [facility] US DENSE BREAST STAT 03/05/2018 10:48 AM Dense breasts Resu lts for this BILATERAL COMPLETE EDT procedure are in the results section. MAMMO 3D SCREENING STAT 03/05/2018 10:31 AM Re sults for this BILATERAL W CAD W EDT procedure are in MARTINEZ the results section. documented in this encounter Results Ultrasound dense breast bilateral complete (03/05/2018 10:48 AM EDT) Anatomical Region Laterality Modality Breast Bilateral Ultrasound Specimen Narrative EDELMIRA MERGE - 03/05/2018 11:32 AM EDT CLINICAL HISTORY: ??Screening Mammogram. ?? Last Clinical Breast Exam: ??09/2017. ??Salome Model 5 year risk: ?? 2.5% (Average: ??1.1%). ?? Salome Model lifetime risk: ?? 21.2% ??(Average: ??11.6%). Dense Breasts. COMPARISON: ??01/31/2017 and mammogram of 03/05/2018. FINDINGS: ??Screening ultrasound of all four quadrants, axilla and retroareolar regions of both breasts were performed for dense breast parenchyma. ??There is heterogeneous background echotexture. Withi n the right breast, there is a stable so lid lesion at 12:00 position 3 cm from nipple measurin g 7 x 5 x 5 mm, previously 7 x 4 x 4 mm. ??This contains a biopsy clip and is compatible with previously biopsied fibroadenoma. ??There is a simple cyst in the 6 o'clock position 1 cm from nipple measur ing less than 1 cm. Within the left breast, there are severa l subcentimeter simple cyst. ??There is a complex cyst or solid lesion in the 5 to 6 o'clock position 2 to 3 cm from the nipple measuring 1.4 x 1.1 x 0.6 cm, not previously seen. ??There is a complex cy st versus solid lesion at 11:00 position 3 cm from nipple measuring 7 x 8 x 4 mm, not previously seen. IMPRESSION: ??Benign findings in the rig ht breast. Probable benign findings in the left sagar ast with complex cysts or solid lesions at 5 to 6:00 position and 11:00 position. ??Follow-up left breast ultrasound in 6 months is recommended. CLASSIFICATION: ??BI-RADS 3 - PROBABLY B ENIGN FINDINGS Patient will receive a reminder letter f rom our office approximately two weeks prior to the recommended follow up date. Dictated by: ARASH FUNG M.D. on 03/05/20 18 Transcribed by: yoel on 03/05/2018 11:31 A M cc: Procedure Note Arash Fung MD - 03/05/2018 CLINICAL HISTORY: Screening Mammogram. L ast Clinical Breast Exam: 09/2017. Salome Model 5 year risk: 2.5% (Average: 1.1%). Salome Model lifetime risk: 21.2% (Average: 11.6%). Dense Breasts. COMPARISON: 01/31/2017 and mammogram of . FINDINGS: Screening ultrasound of all fo ur quadrants, axilla and retroareolar regions of both breasts were performed for dense breast parenchyma. There is heterogeneous background echotexture. Within the right breast, there is a stable solid le ruma at 12:00 position 3 cm from nipple measurin g 7 x 5 x 5 mm, previously 7 x 4 x 4 mm. This contains a biopsy clip and is compatible with previously biopsied fibroadenoma. There is a simple cyst in the 6 o'clock position 1 cm from nipple measuring less than 1 cm. Within the left breast, there are severa l subcentimeter simple cyst. There is a complex cyst or solid lesion in the 5 to 6 o'clock position 2 to 3 cm from the nipple measuring 1.4 x 1.1 x 0.6 cm, not previously seen. There is a complex cyst versus solid lesion at 11:00 position 3 cm from nipple measuring 7 x 8 x 4 mm, not previously seen. IMPRESSION: Benign findings in the right breast. Probable benign findings in the left sagar ast with complex cysts or solid lesions at 5 to 6:00 position and 11:00 position. Follow-up left breast ultrasound in 6 months is recommended. CLASSIFICATION: BI-RADS 3 - PROBABLY MARIAMA IGN FINDINGS Patient will receive a reminder letter f rom our office approximately two weeks prior to the recommended follow up date. Dictated by: ARASH FUNG M.D. on 03/05/20 18 Transcribed by: yoel on 03/05/2018 11:31 A M cc: Performing Organization Address City/State/ZIP Code Phon e Number [facility] EDELM[facility] [employer] Mammography screening bilateral with CAD & tomosynthesis (03/05/2018 10:31 AM EDT) Anatomical Region Laterality Modality Mammography Specimen Narrative [facility] [employer] - 03/05/2018 10:48 AM EDT ADDENDUM: ??The BI-RADS category was donna nge due to probable benign findings seen on ultrasound. CLASSIFICATION: ??BI-RADS 3 - PROBABLY B ENIGN FINDINGS ACR Breast Density: C- Heterogeneously d ense ResultCode: ??BR 3 C Patient will receive a reminder letter f rom our office approximately two weeks prior to the recommended follow up date. Dictated by: ARASH FUNG M.D. on 03/05/20 18 A M cc: End of Ad dendum Report CLINICAL HISTORY: ??Screening Mammogram. ?? Last Clinical Breast Exam: ??09/2017. ??Salome Model 5 year risk: ?? 2.5% (Average: ??1.1%). ?? Salome Model lifetime risk: ?? 21.2% ??(Average: ??11.6%). Dense Breasts. COMPARISON: ??[facility] dating back to 01/06. TECHNIQUE: ??Digital Mammogram with Apple st Tomosynthesis of each breast were obtained with CAD. FINDINGS: ??The breast tissue is heterog eneously dense, which could obscure detection of small masses. No developing mass or suspicious calcifi cations are seen. A biopsy clip is again noted in the right breast. IMPRESSION: ??No mammographic evidence o f malignancy. A follow up mammogram is recommended in one year as per the [place] [employer]. ACR Breast Density:C- Heterogeneously de nse CLASSIFICATION: BI-RADS 2 - BENIGN FINDI NGS ResultCode: BR 2 C DISCLAIMER: ??According to The [place] [employer] and the [place] [employer], any patient with a lifetime risk assessment greater than 20% or patients with dense breasts (heterogeneously or extremely dense), may benefit from a dditional screening tests for breast cancer. Furth er screening tests for patients with dense breasts (heterogeneously or extremely dense) should be based upon the patient's breast cancer risk status. All patients , having their mammogram with [facility], with a lifetime risk assessment greater than 20% or with dense breasts, will be given the opportunity to meet with our certified breast health navigator to discuss their risk and further imaging options. Further screening test includes Ultrasou nd and MR (Magnetic Resonance) imaging. Dictated by: ARASH FUNG M.D. on 03/05/20 18 Transcribed by: yoel on 03/05/2018 10:47 A M cc: Procedure Note Arash Fung MD - 03/05/2018 ADDENDUM: The BI-RADS category was álvarez e due to probable benign findings seen on ultrasound. CLASSIFICATION: BI-RADS 3 - PROBABLY MARIAMA IGN FINDINGS ACR Breast Density: C- Heterogeneously d ense ResultCode: BR 3 C Patient will receive a reminder letter f rom our office approximately two weeks prior to the recommended follow up date. Dictated by: ARASH FUNG M.D. on 03/05/20 A M cc: End of Ad dendum Report CLINICAL HISTORY: Screening Mammogram. L ast Clinical Breast Exam: 09/2017. Salome Model 5 year risk: 2.5% (Average: 1.1%). Salome Model lifetime risk: 21.2% (Average: 11.6%). Dense Breasts. COMPARISON: [facility]ors dating back to 016. TECHNIQUE: Digital Mammogram with Breast Tomosynthesis of each breast were obtained with CAD. FINDINGS: The breast tissue is heterogen eously dense, which could obscure detection of small masses. No developing mass or suspicious calcifi cations are seen. A biopsy clip is again noted in the right breast. IMPRESSION: No mammographic evidence of malignancy. A follow up mammogram is recommended in one year as per the [place] [employer]. ACR Breast Density:C- Heterogeneously de nse CLASSIFICATION: BI-RADS 2 - BENIGN FINDI NGS ResultCode: BR 2 C DISCLAIMER: According to [employer] [place] [employer] and the [place] [employer], any patient with a lifetime risk assessment greater than 20% or patients with dense breasts (heterogeneously or extremely dense), may benefit from additional screening tests for breast cancer. Furth er screening tests for patients with dense breasts (heterogeneously or extremely dense) should be based upon the patient's breast cancer risk status. All patients, having their mammogram with [facility], with a lifetime risk assessment greater than 20% or with dense breasts, will be given the opportunity to meet with our certified breast health navigator to discuss their risk and further imaging options. Further screening test includes Ultrasou nd and MR (Magnetic Resonance) imaging. Dictated by: ARASH FUNG M.D. on 03/05/20 18 Transcribed by: yoel on 03/05/2018 10:47 A M cc: Performing Organization Address City/State/ZIP Code Phon e Number [facility] EDELMIRA RODRIGUEZ documented in this encounter Visit Diagnoses Diagnosis Encounter for screening mammogram for hi gh-risk patient Dense breasts Inconclusive mammogram documented in this encounter Care Teams Pockets And Pieces Necktie Operator Relationship Specialty Start Date End Date Debbie De La Vega, PCP - General Family Medicine 06/05/17 POULTRY INSPECTOR [address] [place] [phone] Mike Bernstein, PCP - General Internal Medicine 12/28/[address] [place] [phone] Lucy Webb, Consulting Physician Obstetrics and 06/08/[address] [place] [address] Kelly Gatica NP Nurse Practitioner Family Medicine 10/20/[address] [place] [address], [address] [place], [place] [phone] documented as of this encounter
--- OUTSIDE RECORDS SUMMARY | 2022-01-24 17:11 | XMS_ITS | Encounter Summary ---
:1970 Author Organization [facility] Address [address] [place] [address] Phone Care Team Providers Name Role Phone Unavailable Primary Care Provider Unavailable Encounter Details Date Type Department Care Team Description 05/11/2017 Telephone [facility] Physicians Sumaya Smiht, MSN, ANP-C Surgical Services - [address] [place] [address] Specialty Services [address] [place] [address] [address] [place] [address] [phone] Social History Tobacco Use Types Packs/Day Years Used Date Never Assessed Sex Assigned at Date Recorded Not on file Job Start Date Occupation Industry Not on file Not on file Not on file documented as of this encounter Miscellaneous Notes Telephone Encounter - Denise Ferrara RN - 05/12/2017 11:06 AM EDT Called and spoke with patient-appt rescheduled to 06/05 @ 8:30 with Marce Smith per patient request. elephone Encounter - Kelly Branch - 05/11/2017 4:43 PM EDT Pt called and stated that she needs to r/s her appointment. She stated that she would need and earlier time of the day as well. Please call pt to r/s [phone] signed by Kelly Branch at 05/11/2017 4:44 PM EDT documented in this encounter Plan of Treatment Upcoming Encounters Date Type Specialty Care Team Description 05/12/2022 Office Visit General Surgery Kelly Gatica NP [address] [facility] [address] [place] [address] (Wo rk) documented as of this encounter Visit Diagnoses Not on filedocumented in this encounter
--- OUTSIDE RECORDS SUMMARY | 2022-01-24 17:11 | XMS_ITS | Encounter Summary ---
:1970 Author Organization [facility] Address [address] [place] [address] Phone Care Team Providers Name Role Phone Lucy Webb MD Unavailable Mike Bernstein MD Primary Care Provider Kelly Gatica NP Unavailable Reason for Referral MRI/CAT/PET Scan (Routine) - Closed Specialty Diagnoses / Procedures Referred By Contact Refer red To Contact Diagnoses Breast cancer screening, high risk patient Dense breasts Abnormal finding on breast imaging Kelly Gatica NP Procedures MRI breast bilateral without and with IV contrast w/CAD [address] [place] [address], [address] [place], [place] [address] Referral ID Status Reason Start Date Expiration Date Visits Requ ested Visits Authorized [id number] Closed 11/08/2021 05/07/2022 1 1 adiology (Emergency) - Closed Specialty Diagnoses / Procedures Referred By Contact Refer hortencia To Contact Diagnoses Dense breasts Kelly Gatica NP Procedures Ultrasound dense breast bilateral complete [address] [place] [address], [address] [place], [place] [address] Referral ID Status Reason Start Date Expiration Date Visits Requ ested Visits Authorized [id number] Closed 05/13/2022 11/09/2022 1 1 Reason for Visit Reason Comments Follow-up Encounter Details Date Type Department Care Team Description [facility] Breast cancer screening, high risk dieudonne nt (Primary Dx); [facility] [address] [place] [address] Drive, Encounter for screening mammogram for high-risk patient; [place] [address] Abnormal finding on breast imaging [address] [place] [address] Dr [address] [address] [place], [place] [phone] (Work) [phone] Social History Tobacco Use Types Packs/Day Years [...] file Not on file Not on file COVID-19 Exposure Response Date Recorded In the last month, have you been in contact with No / Unsure 05/11/2021 9:43 AM EDT someone who was confirmed or suspected to have Coronavirus / COVID-19? documented as of this encounter Last Filed Vital Signs Vital Sign Reading Time Taken Comments Blood Pressure 131/75 05/11/2021 11:26 AM EDT Pulse 64 05/11/2021 11:26 AM EDT Temperature 35.8 ??C (96.4 ??F) 05/11/2021 11:26 AM EDT Respiratory Rate - - Oxygen Saturation - - Inhaled Oxygen Concentration - - Weight 64.9 kg (143 lb) 05/11/2021 11:26 AM EDT Height 175.3 cm (5' 9) 05/11/2021 11:26 AM EDT Body Mass Index 21.12 05/11/2021 11:26 AM EDT documented in this encounter Functional [...] documented as of this encounter Progress Notes Kelly Gatica, LOLA - 05/11/2021 10:45 AM EDT 05/11/21 Trina MargeDeborah [id number] female 50 years BREAST FOLLOW UP HIGH RISK Assessment / Plan: Trina has history of multiple bilateral breast biopsies in the past, all of which were negative. She is followed in our high risk breast cancer surveillance program alternating mammo/dbs and MRI every six months. History of premenopausal breast cancer in her sister. Patient has a benign breast exam and benign bilateral mammogram and stable bilateral dbs. The patient will follow-up in 1 year with a bilateral mammogram and dbs. Screening MRI due in six months, we will call her with the results. As always, it is a pleasure to participate in her care. At today's appointment we discussed the physical examination and imaging findings, and any questionsthey had were answered. We look for to seeing at her next appointment and we would be happy to see her in the interim if needed. She understands she can contact us at any time if she notes any change in her self breast/chest wall exam, or has any questions regarding her breast health. Pertinent History: Trina was initially seen 05/2017??referred by Dr Do office to establish breast care follow up. She has had bilateral breast biopsies performed in the past which were negative. These are noted below. ?? RIGHT breast 1200 position US core biopsy 05/2013??: Fibroadenoma LEFT breast 0600 position US core biopsy 05/2013:??Fibroadenoma LEFT breast EXCISIONAL??biopsy??2015, Dr Do; ??benign tubular adenoma, no atypia LEFT breast 0700 position, US core biopsy 03/2020: Benign tissue, stromal fibrosis and mild adenosis.No atypia. ?? Menstrual/ History:? Menarche age 12, 1st parity age 32, , use of oral contraceptives in the past ?? Social History:?? She is , she is the Arts Director at [employer], she has 2 children a son and a daughter, alcohol intake 3 to 4 glasses per week, nonsmoker Family Cancer History:? Sister had breast cancer treated with mastectomy, chemo and radiation at age 45, she tested BRCA negative, father prostate cancer age 75 Subjective: HPI / Interval history: Trina Fierro is a very pleasant 50 yearsyo female here today for follow up with imaging and clinical exam. Her mammogram today is benign, BR 2 B. She has known bilateral breast cysts. She has 2 cm cyst in the lateral left breast. It is not palpable on exam and is not bothersome to her. I pointed out its location. She'll let me know if it becomes bothersome and would like aspiration. Remaining nodules and cysts really are not palpable. In regards to any breast complaints, she reports: None As noted above she has had multiple bilateral biopsies in the past, all of which have been benign. She does perform self breast/chest wall examination and notes no change. She denies feeling any new lumps, bumps, denies breast pain, tenderness or nipple discharge. Past Medical History: Diagnosis Date ??? Bilateral breast cysts 06/05/2017 ??? Family history of breast cancer; sister age 45 06/05/2017 ??? S/P LEFT breast 0600 position US core biopsy 05/2013: Fibroadenoma 06/09/2017 ??? S/P left breast biopsy 2016, Dr Do; benign tubular adenoma, no atypia 06/05/2017 ??? S/P RIGHT breast 1200 position US core biopsy 05/2013 : Fibroadenoma 06/09/2017 Family History Problem Relation Age of Onset ??? Hypertension Mother ??? Glaucoma Mother ??? Prostate cancer Father ??? Breast cancer Sister 45 ??? Anuerysm Maternal Grandmother 80 ??? Stroke Paternal Grandmother 70 Past Surgical History: Procedure Laterality Date ??? [place], bilateral ??? SECTION 10/2003 ??? WISDOM TOOTH EXTRACTION Bilateral Review of Systems Review of Systems Constitutional: Negative. Respiratory: Negative. Cardiovascular: Negative. Neurological: Negative. Psychiatric/Behavioral: Negative. Objective: Vitals: 05/11/21 1126 BP: 131/75 Pulse: 64 Temp: 96.4 ??F Exam: Const: Appears pleasant. No signs of apparent distress present. Alert and oriented. Patient is a good historian. Head/Face: Atraumatic, normocephalic and no lesions or masses. Eyes: Conjunctivae pink.No icterus of the sclerae bilaterally. ENMT: Oral mucosa: pink and moist with no lesions. Neck: Supple. Palpation reveals no lymphadenopathy, swelling or tenderness. Trachea midline. Resp: Respirations non labored, speech is normal. CV: Extremities: No clubbing, cyanosis or edema. Breasts: Breast exam was performed while patient was in a supine position and in a sitting postion. Breasts are Medium in size and symmetrical. No dimpling of the breasts bilaterally. Breasts are normal and no dominant mass on both breasts. Bilateral infraclavicular nodes are non-palpable. Nipples: There is no nipple discharge, dimpling or nipple retractions. Axillae: Axillae are normal to palpation bilaterally, but no lymphadenopathy of the axillae. Musculo: Walks with a normal gait for age. Upper Extremities: Full ROM bilaterally. Lower Extremities: Full ROM bilaterally. Skin: No jaundice, lesion, rash. Neuro: Upper Extremities: Lower Extremities: Neuro reveals no focal deficits. Physical Exam Today's imaging reveals: CLINICAL HISTORY: Screening mammogram. Dense breast tissue. Last Clinical Breast Exam:October 2020.Tyrer-Cuzick Model 10-year risk: 3.7% (Average: 2.7%) Tyrer- Cuzick Model lifetime risk: 15.6% (Average: 11.4%). ?? COMPARISON: March 17, 2020 and earlier mammograms. ?? TECHNIQUE: Digital imaging was performed with tomosynthesis. Computer-aided detection was utilized for image review. ?? FINDINGS: Bilateral screening mammogram: There is a circumscribed mass in the left breast at about the 3 o'clock position consistent with a simple cyst by ultrasound. This is increased slightly in size. ?? There is no other enlarging mass or new malignant type calcification. Site marker is noted in the upper outer right breast with no associated abnormality in this area. ?? Bilateral dense breast screening ultrasound: ?? Right breast: In the 0200 hours retroareolar area there is a 7 x 5 x 4 mm cyst cluster which is stable compared to the initial study of 03/2020. ?? Left breast: Simple cyst noted at the 2 to 3 o'clock position measuring 2.2 cm corresponding to the mammographic finding. ?? At the 5 to 6 o'clock position 2 to 3 cm from the nipple there is oval heterogeneous circumscribed nodule measuring 15 x 9 x 4 mm possibly representing an intramammary lymph node and this is unchanged from 2018. ?? At the 7 o'clock position 3 to 4 cm from the nipple, there is a hypoechoic oval nodule measuring 5 x4 x 3 mm. A biopsy clip is noted and this is unchanged from 2020. ?? At the 11 o'clock position 3 cm from the nipple there is a 7 x 7 x 3 mm hypoechoic oval solid nodulewhich is unchanged from 2019. ?? At the 11 o'clock position 2 cm from the nipple, there is a 9 x 6 x 4 mm cyst cluster which has a benign appearance. ?? IMPRESSION: No evidence of malignancy. Annual screening mammography is recommended in 1 year. ?? CLASSIFICATION: BI-RADS 2 - BENIGN FINDINGS. ?? ACR Breast Density: C- Heterogeneously dense ?? ResultCode: BR 2 C ?? Dictated by: PARIS ALVAREZ M.D. on 05/11/2021 Transcribed by: yoel on 05/11/2021 11:17 AM Signature: Kelly Gatica NP Date: May 11, 2021 Time: 5:[address] Rogers and Dr Terry's office follows NCCN guidelines for benign and malignant breast disease, she is my collaborating physician. I have followed protocols established with them, and periodically review charts with them. Certain parts of this note may have been carried over from prior notes to maintain patient's pertinent medical history and continuity of care. The details were verified and edited as appropriate. documented in this encounter Plan of Treatment Upcoming Encounters Date Type Specialty Care Team Description 05/12/2022 Office Visit General Surgery Kelly Gatica NP [address] [place] [address] [address] [place] [address] (Wo rk) Scheduled Orders Name Type Priority Associated Diagnoses Order S chedule ([facility]IA or External) Imaging STAT Encounter for screenin g Expected: 05/11/2022 Mammography 3D screening mammogram for hi gh-risk (Approximate), bilateral with CAD & patient Expires : 11/08/2022 seema Ultrasound dense breast Imaging STAT Dense breasts Exp ected: 05/13/2022 bilateral complete (Approxim ate), Expires: 2022 documented as of this encounter Results MRI breast bilateral without and with IV contrast w/CAD (11/16/2021) Anatomical Region Laterality Modality Breast Bilateral Magnetic Resonance Narrative This result has an attachment that is no t available. Performing Organization Address City/State/ZIP Code Phon e Number [facility]- documented in this encounter Visit Diagnoses Diagnosis Breast cancer screening, high risk patie nt - Primary Screening mammogram for high-risk patien t Dense breasts Inconclusive mammogram Encounter for screening mammogram for hi gh-risk patient Abnormal finding on breast imaging documented in this encounter Care Teams Almond Grinder Relationship Specialty Start Date End Date Mike Bernstein, PCP - General Internal Medicine 12/28/[address] [place] [phone] Lucy Webb, Consulting Physician Obstetrics and 06/08/[address] [place] [id number] Kelly Gatica NP Nurse Practitioner Family Medicine 10/20/[address] [place] [address], [address] [place] [address] documented as of this encounter
--- OUTSIDE RECORDS SUMMARY | 2022-01-24 17:11 | XMS_ITS | Encounter Summary ---
:[address] [facility] Address [address] [place] [phone] Phone Care Team Providers Name Role Phone Lucy Webb MD Unavailable Mike Bernstein MD Primary Care Provider [phone] Reason for Referral Radiology (Routine) - Closed Specialty Diagnoses / Procedures Referred By Contact Refer red To Contact Diagnoses Abnormal finding on breast imaging Kelly Gatica NP Procedures Ultrasound breast bilateral limited [address] [place] [address], [address] [place], [place] [address] Referral ID Status Reason Start Date Expiration Date Visits Requ ested Visits Authorized [id number] Closed 10/14/2020 04/12/2021 1 1 Encounter Details Date Type Department Care Team Description 10/14/2020 Orders Only [facility] Physicians Sa jake Gatica NP Abnormal finding on Surgical Services - [facility] (Primary Dx) [address] [place] [address] [address] [place] [phone] Social History Tobacco Use Types Packs/Day Years [...] Office Visit [place] [address] [place] [address] (Wo rk) documented as of this encounter Procedures Procedure Name Priority Date/Time Associated Diagnosis Comme [facility] US BREAST BILATERAL Routine 10/20/2020 1:48 PM Abnormal findin g on Results for this LIMITED EDT breast imaging procedure are in the results section. documented in this encounter Results Ultrasound breast bilateral limited (10/20/2020 1:48 PM EDT) Anatomical Region Laterality Modality Breast Bilateral Ultrasound Specimen Narrative BETHIA MERGE - 10/20/2020 2:15 PM EDT CLINICAL HISTORY: ??Bilateral breast abn ormal imaging. History of left breast benign biopsy March 2020. COMPARISON: ??03/30/2020 and 03/17/2020 FINDINGS: ??Multiple real-time sonograph ic images of the bilateral breasts are obtained. In the right breast at 2 to 3 o'clock in the retroareolar region there is a benign-appearing septated cyst measuring 7 x 5 x 4 mm, previously 6 x 4 x 5 mm. In the left breast at 7 o'clock 3 to 4 c m from nipple there is a hypoechoic solid nodule measuring 5 x 4 x 5 mm, previously 6 x 6 x 8 mm. ??There is a biopsy clip. ??Previously sampled. IMPRESSION: 1. Benign-appearing septated cyst in the right breast. ??No significant change. 2. Decreased size of biopsy proven benig n left breast lesion. 3. No sonographic evidence of malignancy . Dictated by: NITO BOYD M.D. on 10/21/19 Transcribed by: yoel on 10/20/2020 02:14 P M CDS G code: , , CDS Modifier: , , cc: Procedure Note Nito Boyd MD - 10/20/2020 CLINICAL HISTORY: Bilateral breast abnor mal imaging. History of left breast benign biopsy March 2020. COMPARISON: 03/30/2020 and 03/17/2020 FINDINGS: Multiple real-time sonographic images of the bilateral breasts are obtained. In the right breast at 2 to 3 o'clock in the retroareolar region there is a benign-appearing septated cyst measuring 7 x 5 x 4 mm, previously 6 x 4 x 5 mm. In the left breast at 7 o'clock 3 to 4 c m from nipple there is a hypoechoic solid nodule measuring 5 x 4 x 5 mm, previously 6 x 6 x 8 mm. There is a biopsy clip. Previously sampled. IMPRESSION: 1. Benign-appearing septated cyst in the right breast. No significant change. 2. Decreased size of biopsy proven benig n left breast lesion. 3. No sonographic evidence of malignancy . Dictated by: NITO BOYD M.D. on 10/21/19 Transcribed by: yoel on 10/20/2020 02:14 P M CDS G code: , , CDS Modifier: , , cc: Performing Organization Address City/State/ZIP Code Phon e Number [facility] MICHAEL documented in this encounter Visit Diagnoses Diagnosis Abnormal finding on breast imaging - Melany schuler documented in this encounter Care Teams Toilet Attendant Relationship Specialty Start Date End Date Kandiah, Vigneswaran, PCP - General Internal Medicine 12/28/[address] [place] [phone] Lucy Webb, Consulting Physician Obstetrics and 06/08/[address] [place] [phone] documented as of this encounter
--- OUTSIDE RECORDS SUMMARY | 2022-01-24 17:11 | XMS_ITS | Encounter Summary ---
:1970 Author Organization [facility] Address [address] [place] [address] Phone Care Team Providers Name Role Phone Lucy Webb MD Unavailable Mike Bernstein MD Primary Care Provider [phone] Reason for Referral Radiology (Emergency) - Closed Specialty Diagnoses / Procedures Referred By Contact Refer red To Contact Diagnoses Abnormal finding on breast imaging Marce Smith MSN, ANP-C Procedures Ultrasound breast limited Left [address] [place] [address] Dr Sullivan [place] [address] Referral ID Status Reason Start Date Expiration Date Visits Requ ested Visits Authorized [id number] Closed 09/11/2019 03/09/2020 1 1 MRI/CAT/PET Scan (Emergency) - Closed Specialty Diagnoses / Procedures Referred By Contact Refer red To Contact Diagnoses Dense breasts Breast cancer screening, high risk patient Family history of breast cancer Marce Smith MSN, ANP-C Procedures MRI breast bilateral without and with IV contrast w/CAD [address] [place] [address] Dr Sullivan [place] [address] Referral ID Status Reason Start Date Expiration Date Visits Requ ested Visits Authorized [id number] Closed 09/11/2019 03/09/2020 1 1 Reason for Visit Reason Comments 1 Year Follow Up breast Encounter Details Date Type Department Care Team Description 03/13/2019 Office Visit [facility] C[place], Marce A, MSN, Breast ca ncer screening, high risk patient (Primary Dx); [facility] ANP-C Encounter for screening mammogram for hi gh-risk patient; Services - [address] Dense breasts; [facility] Abnormal finding on breast imaging; [address] [place] [id number] Family history of breast cancer; sister age [address] [place] [address] Social History Tobacco Use Types [...] Sign Reading Time Taken Comments Blood Pressure 100/60 03/13/2019 10:54 AM EDT Pulse 58 03/13/2019 10:54 AM EDT Temperature - - Respiratory Rate 19 03/13/2019 10:54 AM EDT Oxygen Saturation 97% 03/13/2019 10:54 AM EDT Inhaled Oxygen Concentration - - Weight 64.9 kg (143 lb) 03/13/2019 10:54 AM EDT Height 175.3 cm (5' 9) 03/13/2019 10:54 AM EDT Body Mass Index 21.12 03/13/2019 10:54 AM EDT documented in this encounter Functional [...] documented as of this encounter Progress Notes Marce Smith, MSN, ANP-C - 03/13/2019 11:00 AM EDT Assessment/Plan: Trina was seen today for a follow up appointment and breast imaging. 1. Breast cancer screening, high risk patient MRI breast bilateral without and with IV contrast w/CAD MRI breast bilateral without and with IV contrast w/CAD 2. Encounter for screening mammogram for high-risk patient ([facility] or External) Mammography 3D screening bilateral with CAD & martinez ([facility] or External) Mammography 3D screening bilateral with CAD & martinez 3. Dense breasts Ultrasound dense breast bilateral complete Ultrasound dense breast bilateral complete MRI breast bilateral without and with IV contrast w/CAD MRI breast bilateral without and with IV contrast w/CAD 4. Abnormal finding on breast imaging Ultrasound breast limited Left Ultrasound breast limited Left 5. Family history of breast cancer; sister age 45 MRI breast bilateral without and with IV contrast w/CAD MRI breast bilateral without and with IV contrast w/CAD She is here today for clinical breast examination revealed dense breast tissue but no palpable abnormalities. She had a bilateral mammogram dense breast ultrasound screening, she has stable cyst in theleft breast, these are not palpable on examination. She had an MRI 6 months ago that revealed no concerning findings. We calculated a Tyrer-Cuzick Risk (KATHIA) Risk was calculated today which takes into account her breast density, family, menstrual and hormone replacement history, shows her lifetime risk of developing breast cancer is 34%, so we will continue to obtain annual MRI to alternate every 6 months with her annual mammogram to assess for occult disease. She will have one or the other, every 6 months. We will see her back in 1 year for another examination along with a bilateral screening mammogram bilateral dense breast ultrasound screening. We will set her up for a MRI and a short-term left breast ultrasound in 6 months, I will call her with those results when they become available.` At today's appointment we discussed the physical examination and imaging findings, and any questionsthey had were answered. We look forward to seeing at her next appointment and we would be happy to see her in the interim ifneeded. She understands she can contact us at any time if she notes any change in her self breast/chest wall exam, or has any questions regarding her breast health. Dr Rogers and Dr Terry's office follows [...] details were verified and edited as appropriate. This document or parts of this document, were dictated using SynGen software. A reasonable attempt at proofreading has been made to minimize errors. Please call with any questions or corrections. Subjective: Patient ID: Trina Fierro is a luis eduardo 48 years female here today for a follow up. Pertinent History: Trina was initially seen 05/[address] Do office to establish breast care follow up.The she has had bilateral breast biopsies performed in the past which were negative. ??These are noted below. ?? She has a family history a sister who would been treated for breast cancer at the age of 45, she tells me her sister tested BRCA negative. ?? LEFT breast EXCISIONAL??biopsy??2015, Dr Do; ??benign tubular adenoma, no atypia ?? 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 Family Cancer History:?Sister had breast cancer treated with mastectomy, chemo and radiation at age 45, she tested BRCA negative, father prostate cancer age 75 ?? Menstrual/ History:?Menarche age 12, 1st parity age 32, , use of oral contraceptives in the past ?? Social History:??She is , she is the Arts Director at [employer], she has 2 children a son and a daughter, alcohol intake 3 to 4 glasses per week, nonsmoker HPI / Interval History: Trina is here for a follow up appointment and a clinical breast exam, with imaging. She does perform self breast/chest wall examination and notes no change or nipple discharge. She worked part-time over the summer, the fallester begins tomorrow, she did get to go on vacation. The most recent breast imaging reveals: Ultrasound dense breast bilateral complete CLINICAL HISTORY: Dense breasts. COMPARISON: Screening mammogram same day and 03/05/2018 ultrasound dense breast screening. TECHNIQUE: Ultrasound in all four quadrants and the retroareolar region was performed. FINDINGS: Screening ultrasound exam was performed given dense breast parenchyma. Echogenic breast tissue is seen with two findings as follows: 1. Left, 5:00 to 6:00, 2 to 3 cm from the nipple, 14 x 10 x 4 mm (prior 14 x 11 x 6 mm) oval-shaped hypoechoic complex cyst versus solid nodule. The lesion is parallel with circumscribed margins. No vascularity or shadowing is seen. The lesion has been followed since 02/2018. 2. Left, 11:00, 3 cm from the nipple, 7 x 6 x 4 mm (prior 7 x 8 x 4 mm) oval- shaped hypoechoic complex cyst versus solid nodule. The lesion is parallel with circumscribed margins. No vascularity or shadowing is seen. The lesion has been followed since 02/2018. Within the right breast a biopsy clip is seen. IMPRESSION: 1. Left breast stable appearance of two complex cysts versus solid nodules. 2. Right breast grossly unremarkable ultrasound dense breast screening. Please refer to the mammography report for further information. Dictated by: EDGAR PEREZ M.D. on 03/07/2019 Transcribed by: on 03/07/2019 01:22 PM cc: ([facility] or External) Mammography 3D screening bilateral with CAD & martinez CLINICAL HISTORY: Screening mammogram. High risk. Dense breasts. Last Clinical Breast Exam: 12/2018 Tyrer-Cuzick Model 10-year risk: 8.2% (Average: 2.5%) Tyrer-Cuzick Model lifetime risk: 34.3% (Average: 11.8%) COMPARISON: 03/05/2018, 01/31/2017 and 06/23/2016 mammograms. TECHNIQUE: Craniocaudal and oblique views were obtained digitally. Craniocaudal views were reviewed by CAD. Digital Breast Tomosynthesis was obtained. FINDINGS: The breast tissue is heterogeneously dense, which could obscure detection of small masses.A right breast biopsy clip is seen. No dominant mass, suspicious microcalcification, architectural distortion or skin/nipple thickening or retraction is seen. There are no significant changes compared to the prior study/studies. Screening breast ultrasound exam, dictated separately, was also performed given the dense breast parenchyma demonstrating stable appearance of two complex cysts versus solid nodules in the left breast with maximum sizes of 14 and 7 mm. No suspicious ultrasound features are seen. Within the right breast a biopsy clip is seen. IMPRESSION: 1. Left breast probable benign findings with stable appearance of two complex cysts versus solid nodules as described. A follow-up ultrasound is recommend in 6 months. 2. Right breast benign findings. A follow up mammogram is recommended in one year as per the [employer]. CLASSIFICATION: BI-RADS 3 - PROBABLY BENIGN FINDINGS ACR Breast Density: C- Heterogeneously dense ResultCode: BR 3 C Patient will receive a reminder letter from our office approximately two weeks prior to the recommended follow up date. DISCLAIMER: According to the [employer] and the [employer], any patient with a lifetime risk assessment greater than 20% or patients with dense breasts (heterogeneously or extremely dense), may benefit from additional screening tests for breast cancer. Further screening tests for patients with dense breasts (heterogeneously or extremely dense) should be based upon the patient's breast cancer risk status. All patients, having their mammogram with [facility], with a lifetime risk assessment greater than 20% or with dense breasts, will be given the opportunity to meet with our certified breast health navigator to discuss their risk and further imaging options. Further screening tests include Ultrasound and MR (Magnetic Resonance) imaging. Dictated by: EDGAR PEREZ M.D. on 03/07/2019 Transcribed by: NICK on 03/07/2019 01:22 PM cc: MRI breast bilateral without and with IV contrast 08/2018 RIGHT BREAST: There is a biopsy clip in the superior right breast. ??There are multiple small benign-appearing nodules bilaterally. ??There is no evidence for suspicious solid or cystic mass. There is no abnormal ductal or parenchymal enhancement. No abnormal lymph nodes are seen. LEFT BREAST: There are multiple small benign-appearing nodules bilaterally. ??There is no evidence for suspicious solid or cystic mass. There is no abnormal ductal or parenchymal enhancement. No abnormal lymph nodes are seen. IMPRESSION: ??No evidence for malignancy in either breast. BI-RADS 2 - benign findings. Dictated by: NITO BOYD M.D. on 08/15/2018 Transcribed by: yoel on 08/15/2018 02:38 PM No Known Drug Allergies No current outpatient medications on file. Past Medical History: Diagnosis Date ??? Bilateral breast cysts 06/05/2017 ??? Family history of breast cancer; sister age 45 06/05/2017 ??? S/P LEFT breast 0600 position US core biopsy 05/2013: Fibroadenoma 06/09/2017 ??? S/P left breast biopsy 2016, Dr Do; benign tubular adenoma, no atypia 06/05/2017 ??? S/P RIGHT breast 1200 position US core biopsy 05/2013 : Fibroadenoma 06/09/2017 Past Surgical History: Procedure Laterality Date ??? Bunn[place], bilateral ??? SECTION 10/2003 ??? WISDOM TOOTH EXTRACTION Bilateral Review of Systems Constitutional: Negative. Negative for appetite change and unexpected weight change. HENT: Negative. Eyes: Negative. Respiratory: Negative. Negative for cough and shortness of breath. Cardiovascular: Negative. Gastrointestinal: Negative. Endocrine: Negative. Genitourinary: Negative. Musculoskeletal: Negative. Negative for arthralgias and myalgias. Skin: Negative. Neurological: Negative. Negative for dizziness and headaches. Hematological: Negative. Psychiatric/Behavioral: Negative. Objective: The breast / chest wall examination was performed in the upright and supine position and reveals: dense breasts. Bilateral axillae: no lymphadenopathy LEFT & RIGHT breast/chest wall: no discoloration, no skin dimpling, puckering, or tethering, andeverted nipples with no discharge, no visible or palpable masses or nodules. Blood pressure 100/60, pulse 58, resp. rate 19, height 1.753 m (5' 9), weight 64.9 kg (143 lb), SpO2 97 %, not currently . Physical Exam Constitutional: She is oriented to person, place, and time. She appears well- developed and well-nourished. HENT: Head: Normocephalic and atraumatic. Neck: Normal range of motion. Neck supple. No thyroid mass and no thyromegaly present. Pulmonary/Chest: Effort normal. No respiratory distress. Abdominal: Soft. She exhibits no mass. There is no guarding. Musculoskeletal: Normal range of motion. Lymphadenopathy: Head (right side): No submental, no submandibular, no tonsillar, no preauricular and no posterior auricular adenopathy present. Head (left side): No submental, no submandibular, no tonsillar, no preauricular and no posterior auricular adenopathy present. She has no cervical adenopathy. She has no axillary adenopathy. Right: No supraclavicular adenopathy present. Left: No supraclavicular adenopathy present. Neurological: She is alert and oriented to person, place, and time. Skin: Skin is warm and dry. Psychiatric: She has a normal mood and affect. Her behavior is normal. Judgment and thought content normal. documented in this encounter Plan of Treatment Upcoming Encounters Date Type Specialty Care Team Description 05/12/2022 Office Visit General Surgery Kelly Gatica NP [address] [place] [address], [place] [address] (Wo rk) Scheduled Orders Name Type Priority Associated Diagnoses Order S chedule Ultrasound breast Imaging STAT Abnormal finding on Exp ected: 09/11/2019, limited Left breast imaging Expires: 10/2019 documented as of this encounter Procedures Procedure Name Priority Date/Time Associated Diagnosis Comme nts MAMMO 3D SCREENING STAT 03/17/2020 1:26 PM Encounter for Re sults for this BILATERAL W CAD W EDT screening mammogram pro cedure are in [facility] for high-risk the results patient section. US DENSE BREAST STAT 03/17/2020 1:15 PM Dense breasts Resul ts for this BILATERAL COMPLETE EDT procedure are in the results section. MRI BREAST STAT 09/03/2019 1:30 PM Dense breasts Results for this BILATERAL W WO EST Breast cancer procedure ar e in CONTRAST screening, high risk the res ults patient section. Family history of breast cancer; sister age 45 documented in this encounter Results ([facility] or External) Mammography 3D screening bilateral with CAD & martinez (03/17/2020 1:26 PM EDT) Anatomical Region Laterality Modality Mammography Specimen Narrative EDELMIRA MERGE - 03/17/2020 2:41 PM EDT CLINICAL HISTORY: ??History of bilateral abnormal imaging. Last Clinical Breast Exam:February 2019. Tyrer-Cuzick Model 10-year risk: 8.7% (Average: 2.6%) Tyrer- Cuzick Model lifetime risk: 34.5% (Average: 11.6%) COMPARISON: ??03/07/2019, 03/05/20182016 and 06/23/2016 TECHNIQUE: ??Craniocaudal and oblique vi ews were obtained digitally. ??Craniocaudal views were reviewed by CAD. ??Digital Breast Tomosynthesis was obtained. FINDINGS: ??Bilateral mammogram: The breast tissue is heterogeneously den se, which could obscure detection of small masses. ??There is a biopsy marker clip noted within the superior right breast. ??Benign type calcifications are noted. No dominant mass, suspicious microcalcif ication, architectural distortion or skin/nipple thickening or retraction is seen. Dense breast screening ultrasound: Dense breast screening ultrasound of the same date demonstrates a new suspicious solid nodule within the left breast. ??Additionally there is a new complex cystic nodule versus cluster cyst in the right breast. ??There are two stable complex cystic versus solid nodules also noted within the left breast which are stable for greater than two years suggesting a benign etiology. IMPRESSION: ??No mammographic evidence f or malignancy. A follow up mammogram is recommended in one year as per the [employer]. Dense breast sonogram of the same day de monstrates a new suspicious solid nodule within the left breast at the 7 o'clock position 4 to 5 cm from the nipple. ??Ultrasound-guided biopsy is recommended. ?? A follow-up targeted right breast ultras ound in six months is recommended for a new complex cystic nodule versus cluster cyst. CLASSIFICATION: BI-RADS 4 - SUSPICIOUS A BNORMALITY. ACR Breast Density: C- Heterogeneously d ense ResultCode: BR 4 C Results communicated to DION Dorsey with Dr Lisbet Rogers on 03/17/2020 with recommendation for ultrasound-guided biopsy. DISCLAIMER: ??According to the [employer] and the [employer], any patient with a lifetime risk assessment greater than 20% or patients with dense breasts (heterogeneously or extremely dense), may benefit from a dditional screening tests for breast cancer. Furth er screening tests for patients with dense breasts (heterogeneously or extremely dense) should be based upon the patient's breast cancer risk status. All patients , having their mammogram with [facility], with a lifetime risk assessment greater than 20% or with dense breasts, will be given the opportunity to meet with our certified breast health navigator to discuss their risk and further imaging options. Further screening tests include Ultrasou nd and MR (Magnetic Resonance) imaging. Dictated by: ED GUERRERO MD on 03/17/20 20 Transcribed by: syl ??03/17/2020 02:40 PM CDS G Code: , , CDS Modifier: , , cc: Procedure Note Ed Guererro, DO - 03/17/2020 CLINICAL HISTORY: History of bilateral a bnormal imaging. Last Clinical Breast Exam:February 2019. Tyrer-Cuzick Model 10-year risk: 8.7% (Average: 2.6%) Tyrer- Cuzick Model lifetime risk: 34.5% (Average: 11.6%) COMPARISON: 03/07/2019, 03/05/2018 02/01/20 17 and 06/23/2016 TECHNIQUE: Craniocaudal and oblique view s were obtained digitally. Craniocaudal views were reviewed by CAD. Digital Breast Tomosynthesis was obtained. FINDINGS: Bilateral mammogram: The breast tissue is heterogeneously den se, which could obscure detection of small masses. There is a biopsy marker clip noted within the superior right breast. Benign type calcifications are noted. No dominant mass, suspicious microcalcif ication, architectural distortion or skin/nipple thickening or retraction is seen. Dense breast screening ultrasound: Dense breast screening ultrasound of the same date demonstrates a new suspicious solid nodule within the left breast. Additionally there is a new complex cystic nodule versus cluster cyst in the right breast. There are two stable complex cystic versus solid nodules also noted within the left breast which are stable for greater than two years suggesting a benign etiology. IMPRESSION: No mammographic evidence for malignancy. A follow up mammogram is recommended in one year as per the [employer]. Dense breast sonogram of the same day de fabianos a new suspicious solid nodule within the left breast at the 7 o'clock position 4 to 5 cm from the nipple. Ultrasound-guided biopsy is recommended. A follow-up targeted right breast ultrasound in six months is recommended for a new complex cystic nodule versus cluster cyst. CLASSIFICATION: BI-RADS 4 - SUSPICIOUS A BNORMALITY. ACR Breast Density: C- Heterogeneously d ense ResultCode: BR 4 C Results communicated to DION Dorsey with Dr Lisbet Rogers on 03/17/2020 with recommendation for ultrasound-guided biopsy. DISCLAIMER: According to the [employer] and the [employer], any patient with a lifetime risk assessment greater than 20% or patients with dense breasts (heterogeneously or extremely dense), may benefit from additional screening tests for breast cancer. Furth er screening tests for patients with dense breasts (heterogeneously or extremely dense) should be based upon the patient's breast cancer risk status. All patients, having their mammogram with [facility], with a lifetime risk assessment greater than 20% or with dense breasts, will be given the opportunity to meet with our certified breast health navigator to discuss their risk and further imaging options. Further screening tests include Ultrasou nd and MR (Magnetic Resonance) imaging. Dictated by: ED GUERRERO MD on 03/17/20 Transcribed by: syl 03/17/2020 02:40 PM CDS G Code: , , CDS Modifier: , , cc: Performing Organization Address City/State/ZIP Code Phon e Number [facility] EDELMIRA MICHAEL Ultrasound dense breast bilateral complete (03/17/2020 1:15 PM EDT) Anatomical Region Laterality Modality Breast Bilateral Ultrasound Specimen Narrative EDELMIRA RODRIGUEZ - 03/17/2020 2:40 PM EDT CLINICAL HISTORY: ??Dense breasts. COMPARISON: ??03/07/2019 FINDINGS: ??Ultrasound in all four quadr ants, axillary tail, and the retroareolar region was performed. Screening ultrasound exam was performed given dense breast parenchyma. Echogenic breast tissue is seen bilaterally. Right breast: At the two-3 o'clock position in the ret roareolar region there is a lobular, hypoechoic complex cyst versus cluster cysts with posterior through transmission and no internal vascularity measuring 0.6 x 0.4 x 0.5 cm. ??This is new compared to the prior ultrasound. There are additional benign appearing cy sts noted within the right breast. Left breast: At the five-6 o'clock position 2 to 3 cm from the nipple there is an oval, hypoechoic complex cystic versus solid nodule with no internal vascularity measuring 1.5 x 1.0 x 0.5 cm, previously measuring 1 .4 x 1.0 x 0.4 cm. ??This is stable dati ng back to 03/05/2018. At the 11 o'clock position 3 cm from the nipple there is an oval, hypoechoic complex cystic versus solid nodule with no internal vascularity measuring 0.7 x 0.7 x 0.3 cm, previously measuring 0.7 x 0.6 x 0.4 cm. At the 7 o'clock position 4 to 5 cm from the nipple there is a new irregular hypoechoic solid nodule which is taller than it is wide and has posterior shadowing and angulated margins measuring 0.5 x 0.5 x 0.5 cm. IMPRESSION: ??Suspicious solid nodule wi thin the left breast at the 7 o'clock position 4 to 5 cm from the nipple which is new compared to the prior ultrasound. ??Ultrasound-guided biopsy is recommended. New complex cystic nodule versus cluster cyst in the right breast as measured above. ??Findings are probably benign. ??Follow-up targeted right breast ultrasound is recommended in six months for re-evaluation. Previously described complex cystic vers us solid nodule within the left breast are now stable for greater than two years, suggesting a benign etiology. ??Please refer to the mammography report for further information. Results communicated to DION Dorsey with Dr Lisbet Rogers on 03/17/2020 with recommendation for ultrasound-guided biopsy. Dictated by: ED GUERRERO MD on 03/17/20 20 Transcribed by: oyel on <<TranscriptionDat [email or web address]>> CDS G code: , , CDS Modifier: , , cc: Procedure Note Ed Guerrero DO - 03/17/2020 CLINICAL HISTORY: Dense breasts. COMPARISON: 03/07/2019 FINDINGS: Ultrasound in all four quadran ts, axillary tail, and the retroareolar region was performed. Screening ultrasound exam was performed given dense breast parenchyma. Echogenic breast tissue is seen bilaterally. Right breast: At the two-3 o'clock position in the ret roareolar region there is a lobular, hypoechoic complex cyst versus cluster cysts with posterior through transmission and no internal vascularity measuring 0.6 x 0.4 x 0.5 cm. This is new compared to the prior ultrasound. There are additional benign appearing cy sts noted within the right breast. Left breast: At the five-6 o'clock position 2 to 3 cm from the nipple there is an oval, hypoechoic complex cystic versus solid nodule with no internal vascularity measuring 1.5 x 1.0 x 0.5 cm, previously measuring 1.4 x 1.0 x 0.4 cm. This is stable dating back to 03/05/2018. At the 11 o'clock position 3 cm from the nipple there is an oval, hypoechoic complex cystic versus solid nodule with no internal vascularity measuring 0.7 x 0.7 x 0.3 cm, previously measuring 0.7 x 0.6 x 0.4 cm. At the 7 o'clock position 4 to 5 cm from the nipple there is a new irregular hypoechoic solid nodule which is taller than it is wide and has posterior shadowing and angulated margins measuring 0.5 x 0.5 x 0.5 cm. IMPRESSION: Suspicious solid nodule with in the left breast at the 7 o'clock position 4 to 5 cm from the nipple which is new compared to the prior ultrasound. Ultrasound-guided biopsy is recommended. New complex cystic nodule versus cluster cyst in the right breast as measured above. Findings are probably benign. Follow-up targeted right breast ultrasound is recommended in six months for re-evaluation. Previously described complex cystic vers us solid nodule within the left breast are now stable for greater than two years, suggesting a benign etiology. Please refer to the mammography report for further information. Results communicated to DION Dorsey with Dr Lisbet Rogers on 03/17/2020 with recommendation for ultrasound-guided biopsy. Dictated by: ED GUERRERO MD on 03/17/20 20 Transcribed by: yoel on <<TranscriptionDat [email or web address]>> CDS G code: , , CDS Modifier: , , cc: Performing Organization Address City/State/ZIP Code Phon e Number [facility] EDELMIRA RODRIGUEZ MRI breast bilateral without and with IV contrast w/CAD (09/03/2019 1:30 PM EST) Anatomical Region Laterality Modality Breast Bilateral Magnetic Resonance Specimen Narrative EDELMIRA RODRIGUEZ - 09/03/2019 2:14 PM EST CLINICAL HISTORY: ??KATHIA risk 34%, family history of breast cancer- sister, age 45 COMPARISON: ??08/15/2018 MRI, mammogram fr om 03/07/2019 TECHNIQUE: ??Routine breast MRI was perf ormed without and with IV contrast. ??13 cc MultiHance intravenous contrast administered, 2 cc discarded. ??3D recons and CAD were utilized/performed. FINDINGS: ??Background enhancement is mi ld. There is heterogeneous fibroglandular tissue. The localizer series is unremarkable. No extramammary disease is identified. RIGHT BREAST: There is a biopsy clip in the superior right breast. ??There are multiple small benign-appearing nodules bilaterally. ??There is no evidence for suspicious solid or cystic mass. There is n o abnormal ductal or parenchymal enhance ment. No abnormal lymph nodes are seen. LEFT BREAST: There are multiple small be nign-appearing nodules bilaterally. ??There is no evidence for suspicious solid or cystic mass. There is no abnormal ductal or parenchymal enhancement. No abnormal lymph nodes are seen. IMPRESSION: ??No evidence for malignancy in either breast. BI-RADS 2 - benign findings. Dictated by: NITO BOYD M.D. on 09/03/19 20 Transcribed by: aa on 09/03/2019 02:14 P M cc: Procedure Note Nito Boyd MD - 09/03/2019 CLINICAL HISTORY: KATHIA risk 34%, family history of breast cancer- sister, age 45 COMPARISON: 08/15/2018 MRI, mammogram from 03/07/2019 TECHNIQUE: Routine breast MRI was perfor med without and with IV contrast. 13 cc MultiHance intravenous contrast administered, 2 cc discarded. 3D recons and CAD were utilized/performed. FINDINGS: Background enhancement is mild . There is heterogeneous fibroglandular tissue. The localizer series is unremarkable. No extramammary disease is identified. RIGHT BREAST: There is a biopsy clip in the superior right breast. There are multiple small benign-appearing nodules bilaterally. There is no evidence for suspicious solid or cystic mass. There is no abnormal ductal or parenchymal enhancement. No abnormal lymph nodes are seen. LEFT BREAST: There are multiple small be nign-appearing nodules bilaterally. There is no evidence for suspicious solid or cystic mass. There is no abnormal ductal or parenchymal enhancement. No abnormal lymph nodes are seen. IMPRESSION: No evidence for malignancy i n either breast. BI-RADS 2 - benign findings. Dictated by: NITO BOYD M.D. on 09/03/19 Transcribed by: yoel on 09/03/2019 02:14 P M cc: Performing Organization Address City/State/[facility] Code Phon e Number [facility] BETHBRUCE MICHAEL documented in this encounter Visit Diagnoses Diagnosis Breast cancer screening, high risk patie nt - Primary Screening mammogram for high-risk patien t Encounter for screening mammogram for hi gh-risk patient Dense breasts Inconclusive mammogram Abnormal finding on breast imaging Family history of breast cancer; sister age 45 Family history of malignant neoplasm of breast documented in this encounter Care Teams Breeding Manager Relationship Specialty Start Date End Date Mike Bernstein, PCP - General Internal Medicine 12/28/[address] [phone] Lucy Webb, Consulting Physician Obstetrics and 06/08/[address] [place] [id number] documented as of this encounter
--- OUTSIDE RECORDS SUMMARY | 2022-01-24 17:11 | XMS_ITS | Encounter Summary ---
:1970 Author Organization [facility] Address [address] [place] [phone] Phone Care Team Providers Name Role Phone Debbie De La Vega RING CONDUCTOR Primary Care Provider Lucy Webb MD Unavailable Reason for Visit Reason Comments New Breast Consult Encounter Details Date Type Department Care Team Description 06/05/2017 Office Visit [facility] Marce Smith, MSN, S/P left breast biopsy 2016, Dr Do; benign tubular adenoma, no atypia; Physicians Surgical ANP-C Family history of breast cancer; sister age 45; Services - [address] [place] [address] Bilateral breas t cysts; [facility] S/P RIGHT breast 1200 position US core b iopsy 05/2013 : Fibroadenoma ; [facility] rv[facility] S/P LEFT breast 0600 position US core bi opsy 05/2013: Fibroadenoma Dr Rome [address] [place] [id number] [place] [phone] (Work) [phone] Social History Tobacco Use Types Packs/Day Years [...] Sign Reading Time Taken Comments Blood Pressure 118/58 06/05/2017 8:33 AM EST Pulse 100 06/05/2017 8:33 AM EST Temperature - - Respiratory Rate - - Oxygen Saturation 100% 06/05/2017 8:33 AM EST Inhaled Oxygen Concentration - - Weight 63 kg (139 lb) 06/05/2017 8:33 AM EST Height - - Body Mass Index - - documented in this encounter Functional Status Functional Status Response Date of Assessment Is the patient deaf or does he/she have serious No 06/05/2017 difficulty hearing? Is the patient blind or does he/she have serious No 06/05/2017 difficulty seeing even when wearing glasses? Does the patient have serious difficulty walking or No 06/05/2017 climbing stairs? Does the patient have difficulty dressing or bathing? No 06/05/2017 Because of a physical, mental, or emotional condition, No 06/05/2017 does the patient have difficulty doing errands alone such as visiting a doctor's office or shopping? Cognitive Status Response Date of Assessment Because of a physical, mental, or emotional condition, No 06/05/2017 does the patient have serious difficulty concentrating, remembering, or making decisions? documented as of this encounter Patient Instructions Patient InstructionsKENNETH Stallings, ANP-C - 06/05/2017 8:30 AM EST We will begin alternating breast exams with compressor station engineer I will order MRI for July I will see you back in January for exam and order your mammo documented in this encounter Progress Notes KENNETH Stallings, ANP-C - 06/05/2017 8:53 AM EST NEW BREAST CONSULTATION to establish breast care follow up in high risk surveillance program Assessment/Plan: Trina Sri was seen today referred by Dr Do to establish high risk breast cancer surveillance. She has had benign breast biopsies in the past, and has an elevated risk to develop breastcancer in her lifetime. Her previous surgeon left the area, so she is here to establish care and breast imaging follow-up. I went over her imaging with her that has been done this year. I explained and showed diagrams describing what we mean by 'dense breasts', why screening US is utilized in addition to mammography. Clinical breast/chest wall examination today reveals a small nodule of 1.5 centimeters in the right breast, is rounded, smooth, mobile consistent with benign characteristics. This is noted by ultrasound and a biopsy in the past revealed a fibroadenoma. Other than that there were no other palpable nodules noted. A Tyrer-Cuzick (KATHIA) Risk Assessment was also performed which takes into account immediate as well as secondary family history of breast and ovarian cancer, reveals a lifetime risk of 31%. With a lifetime risk of 20% or greater, we will begin to alternate MRI of the breast with her mammographic screening, so she will have one or the other imaging modality every 6 months. We discussed the benefit of MRI breast surveillance in terms of its heightened sensitivity when compared to screening mammographyas well as the lack of exposure to ionizing radiation. We also discussed the downfall of MRI???s relatively poor specificity leading to the possibility of false positive findings. We reviewed the rare risk of complication associated with the gadolinium-based contrast agent and the possible need for pre-exam assessment of renal function. She understands that as she ages, her lifetime risk will gradually fall, and once is is below 20%, we will no longer be recommending annual MRI. So we will begin to alternate clinical breast examinations with her gynecological exams. She will return to see us in January for examination and a mammogram. I ordered MRI to be performed in July. She was advised to call us for evaluation if she develops any change in her SBE, and was encouraged to continue performing SBE regularly IF she is comfortable doing so. It is a pleasure to participate in her care, and should she require any assistance in the interim, we are happy to see her back. I reviewed my findings with her, and she is in agreement with the plan as stated. Dr Rogers's office follows guidelines for benign and malignant breast disease, she is my collaboratingphysician. I have followed protocols established by Dr Rogers, and periodically review charts with her. This document or parts of this document, were dictated using [employer] software. A reasonableattempt at proofreading has been made to minimize errors. Please call with any questions or corrections. Subjective: Patient ID: Trina Sri is a 46 years years female here for consultation HPI Trina Fierro is a luis eduardo 46 years female referred by Dr Do office to establish breast care follow up. The she has had bilateral breast biopsies performed in the past which were negative. These are noted below. She has a family history a sister who would been treated for breast cancer at the age of 45, she tells me her sister tested BRCA negative. LEFT breast EXCISIONAL biopsy 2015, Dr Do; benign tubular adenoma, no ADDENDUM: RIGHT breast 1200 position US core biopsy 05/2013 : Fibroadenoma LEFT breast 0600 position US core biopsy 05/2013: Fibroadenoma END ADDENDUM Menstrual/ History: Menarche age 12, 1st parity age 32, , use of oral contraceptives in thepast Social History: She is , she is the Arts Director at [employer], she has 2 children a son and a daughter, alcohol intake 3 to 4 glasses per week, nonsmoker Family Cancer History: Sister had breast cancer treated with mastectomy, chemo and radiation at age 45, she tested BRCA negative, father prostate cancer age 75 There is no family history of colon, ovarian, pancreatic cancer she is aware of IMAGING: She had a bilateral mammogram performed in January which revealed dense breast tissue, the mammogram was stable, there is no evidence of malignancy. Her ultrasound of the breasts bilaterally showed cysts,1 of them corresponded to a nodule seen by mammography. There was a stable nodule in the right breast which in the past had been biopsied and found to be a fibroadenoma, this was unchanged. Her imagingfindings for BI-RADS 2 category. No Known Drug Allergies Prior to Admission medications Not on File Past Medical History: Diagnosis Date ??? Bilateral breast cysts 06/05/2017 ??? Family history of breast cancer; sister age 45 06/05/2017 ??? S/P left breast biopsy 2015, Dr Do; benign tubular adenoma, no atypia 06/05/2017 Past Surgical History: Procedure Laterality Date ??? [place], bilateral ??? SECTION 10/2003 ??? WISDOM TOOTH EXTRACTION Bilateral Family History Problem Relation Age of Onset ??? Hypertension Mother ??? Glaucoma Mother ??? Prostate cancer Father ??? Breast cancer Sister 45 ??? Anuerysm Maternal Grandmother 80 ??? Stroke Paternal Grandmother 70 Social History Substance Use Topics ??? Smoking status: Never Smoker ??? Smokeless tobacco: Never Used ??? Alcohol use Yes Comment: socially Review of Systems Constitutional: Negative. Negative for appetite change and unexpected weight change. HENT: Negative. Eyes: Negative. Respiratory: Negative. Negative for cough and shortness of breath. Cardiovascular: Negative. Gastrointestinal: Negative. Endocrine: Negative. Genitourinary: Negative. Musculoskeletal: Negative. Negative for arthralgias and myalgias. Skin: Negative. Neurological: Negative. Negative for dizziness and headaches. Hematological: Negative. Psychiatric/Behavioral: Negative. Objective: Blood pressure 118/58, pulse 100, weight 63 kg (139 lb), last menstrual period 05/11/2017, SpO2 100 %, not currently . Physical Exam Constitutional: She is oriented to person, place, and time. She appears well- developed and well-nourished. HENT: Head: Normocephalic and atraumatic. Neck: Normal range of motion. Neck supple. No thyromegaly present. Pulmonary/Chest: Effort normal. No respiratory distress. The breast / chest wall examination was performed in the upright and supine position and reveals: Symmetrical dense breasts. In the left breast there is no palpable masses or nodules noted. The right breast at the 9 o'clock position there is a small nodule measuring 1.5 centimeters which is rounded, smooth, and mobile. Her nipples are everted bilaterally, there is no nipple discharge noted, and other than the finding in the right breast are no other palpable masses or nodules in either breast. There is no axillary lymphadenopathy noted. Abdominal: Soft. She exhibits no mass. There [...] Visit General Surgery Kelly Gatica, LOLA [address] [address] (Wo rk) documented as of this encounter Visit Diagnoses Diagnosis S/P left breast biopsy 2016, Dr Do; benign tubular adenoma, no atypia Other postprocedural status Family history of breast cancer; sister age 45 Family history of malignant neoplasm of breast Bilateral breast cysts S/P RIGHT breast 1200 position US core b iopsy 05/2013 : Fibroadenoma Other postprocedural status S/P LEFT breast 0600 position US core bi opsy 05/2013: Fibroadenoma Other postprocedural status documented in this encounter Care Teams Lead Net Software Developer Relationship Specialty Start Date End Date Debbie De La Vega, PCP - General Family Medicine 06/05/[address] [phone] Lucy Webb, Consulting Physician Obstetrics and 06/08/[address] [place] [phone] documented as of this encounter
--- OUTSIDE RECORDS SUMMARY | 2022-01-24 17:11 | XMS_ITS | Encounter Summary ---
:1970 Author Organization [facility] Address [address] [place] [address] Phone Care Team Providers Name Role Phone CharlesDebbie gonzalez Dylan ARREDONDOP Primary Care Provider Lucy Webb MD Unavailable Encounter Details Date Type Department Care Team Description 08/09/2018 Orders Only [facility] Marce Smith, MSN, Atiya sagar asts; Physicians Surgical ANP-C Family history of breast cancer; sister age 45; Services - [address] [place] [address] Breast cancer screening, high risk patie nt; [facility] Abnormal finding on breast imaging [address] [place] [id number] [place] [address] [address] [place] [address] Social History Tobacco Use Types [...] Visit General Surgery Kelly Gatica NP [address] [facility], [facility] [address] [place] [address] (Wo rk) documented as of this encounter Procedures Procedure Name Priority Date/Time Associated Diagnosis Comme nts MRI BREAST STAT 08/15/2018 1:00 PM Dense breasts Results for this BILATERAL W WO EST Family history of procedur e are in CONTRAST breast cancer; the results sister age 45 section. Breast cancer screening, high risk patient documented in this encounter Results MRI breast bilateral without and with IV contrast (08/15/2018 1:00 PM EST) Anatomical Region Laterality Modality Breast Bilateral Magnetic Resonance Specimen Narrative [facility] - 08/15/2018 2:38 PM EST CLINICAL HISTORY: ??dense breast/family history of malignant neoplasm of breast-sister COMPARISON: ??Mammogram from 03/05/2018 TECHNIQUE: ??Routine breast MRI was perf ormed without and with IV contrast. ??13/15ml MULTIHANCE 3D recons and CAD were utilized/performed. FINDINGS: ??Background [...] findings. Dictated by: NITO BOYD M.D. on 08/15/19 Transcribed by: yoel on 08/15/2018 02:38 P M cc: Procedure Note Nito Boyd MD - 08/15/2018 CLINICAL HISTORY: dense breast/family hi story of malignant neoplasm of breast-sister COMPARISON: Mammogram from 03/05/2018 TECHNIQUE: Routine breast MRI was perfor med without and with IV contrast. 13/15ml MULTIHANCE 3D recons and CAD were utilized/performed. FINDINGS: [...] findings. Dictated by: NITO BOYD M.D. on 08/15/19 Transcribed by: yoel on 08/15/2018 02:38 P M cc: Performing Organization Address City/State/ZIP Code Phon e Number [facility] EDELMIRA MICHAEL documented in this encounter Visit Diagnoses Diagnosis Dense breasts Inconclusive mammogram Family history of breast cancer; sister age 45 Family history of malignant neoplasm of breast Breast cancer screening, high risk patie nt Screening mammogram for high-risk patien t Abnormal finding on breast imaging documented in this encounter Care Teams Nursing Teacher Relationship Specialty Start Date End Date Debbie De La Vega, PCP - General Family Medicine 06/05/[address] [phone] Lucy Webb, Consulting Physician Obstetrics and 06/08/17 MD Gynecology [address] [place] [address] documented as of this encounter
--- OUTSIDE RECORDS SUMMARY | 2022-01-24 17:11 | XMS_ITS | Encounter Summary ---
:1970 Author Organization [facility] Address [address] [place] [address] Phone Care Team Providers Name Role Phone Lucy Webb MD Unavailable Mike Bernstein MD Primary Care Provider [phone] Kelly Gatica NP Unavailable Reason for Referral Radiology (Emergency) - Closed Specialty Diagnoses / Procedures Referred By Contact Refer red To Contact Diagnoses Dense breasts Kelly Gatica NP Procedures Ultrasound dense breast bilateral complete [address] [facility], [address] [place], [place] [address] Referral ID Status Reason Start Date Expiration Date Visits Requ ested Visits Authorized [id number] Closed 04/21/2021 10/18/2021 1 1 Reason for Visit Reason Comments 6 Month Follow Up Encounter Details Date Type Department Care Team Description 10/20/2020 Office Visit [facility] Kelly Gatica NP Dense breasts (Primary Dx); [facility] [address] [facility] ancer screening, high risk patient Services - [facility] [address] [facility] [address] [address] [place], [place] [phone] (Work) [phone] Social History Tobacco Use Types Packs/Day Years [...] Sign Reading Time Taken Comments Blood Pressure 145/80 10/20/2020 2:26 PM EDT Pulse 69 10/20/2020 2:26 PM EDT Temperature - - Respiratory Rate - - Oxygen Saturation - - Inhaled Oxygen Concentration - - Weight 64.9 kg (143 lb) 10/20/2020 2:26 PM EDT Height 175.3 cm (5' 9) 10/20/2020 2:26 PM EDT Body Mass Index 21.12 10/20/2020 2:26 PM EDT documented in this encounter Functional Status [...] as of this encounter Progress Notes Kelly Gatica NP - 10/20/2020 1:50 PM EDT 10/20/20 Trina Sri [id number] female 49 years Trina Sri is a patient who is followed in our high risk breast cancer surveillance program. Pertinent History: Trina was initially seen 05/2017??referred by Dr Do office to establish breast care follow up. The she has had bilateral breast biopsies performed in the past which were negative. These are noted below. ?? RIGHT breast 1200 position US core biopsy 05/2013??: Fibroadenoma LEFT breast 0600 position US core biopsy 05/2013:??Fibroadenoma LEFT breast EXCISIONAL??biopsy??2016, Dr Do; ??benign tubular adenoma, no atypia LEFT breast 0700 position, US core biopsy 03/2020: Benign tissue, stromal fibrosis and mild adenosis.No atypia. ?? Family Cancer History:? Sister had breast cancer treated with mastectomy, chemo and radiation at age 45, she tested BRCA negative, father prostate cancer age 75 ?? Menstrual/ History:? Menarche age 12, 1st parity age 32, , use of oral contraceptives in the past ?? Social History:?? She is , she is the Arts Director at [employer], she has 2 children a son and a daughter, alcohol intake 3 to 4 glasses per week, nonsmoker ?? Subjective: HPI / Interval history: Trina Fierro is a very pleasant 49 yearsyo female here today for six month f/u with bilateral sonogram. She had a left breast biopsy six months ago, with benign findings. She was also noted to have a cystic lesion in the right breast, that is unchanged from previous imaging. She also had herhigh risk MRI today - this was benign, BR 2. Her exam is benign. The left breast nodule at 6-7:00 is slightly palpable, non tender. Previously biopsied with benign findings. As noted above she has had multiple bilateral biopsies in the past, all of which have been benign. She is quite calm about needing another biopsy today. She does perform self breast/chest wall examination and notes no change. She denies feeling any new lumps, bumps, denies breast pain, tenderness or nipple discharge. Current Meds: No current outpatient medications on file. Allergies: No Known Drug Allergies Past Medical History: Diagnosis Date ??? Bilateral breast cysts 06/05/2017 ??? Family history of breast cancer; sister age 45 06/05/2017 ??? S/P LEFT breast 0600 position US core biopsy 05/2013: Fibroadenoma 06/09/2017 ??? S/P left breast biopsy 2015, Dr Do; benign tubular adenoma, no atypia 06/05/2017 ??? S/P RIGHT breast 1200 position US core biopsy 05/2013 : Fibroadenoma 06/09/2017 Family History Problem Relation Age of Onset ??? Hypertension Mother ??? Glaucoma Mother ??? Prostate cancer Father ??? Breast cancer Sister 45 ??? Anuerysm Maternal Grandmother 80 ??? Stroke Paternal Grandmother 70 Social History Socioeconomic History ??? Marital status: Unknown Spouse name: Not on file ??? Number of children: Not on file ??? Years of education: Not on file ??? Highest education level: Not on file Occupational History ??? Not on file Social Needs ??? Financial resource strain: Not on file ??? Food insecurity: Worry: Not on file Inability: Not on file ??? Transportation needs: Medical: Not on file Non-medical: Not on file Tobacco Use ??? Smoking status: Never Smoker ??? Smokeless tobacco: Never Used Substance and Sexual Activity ??? Alcohol use: Yes Comment: socially ??? Drug use: No ??? Sexual activity: Yes Partners: Male control/protection: Other Comment: has vasectomy Lifestyle ??? Physical activity: Days per week: Not on file Minutes per session: Not on file ??? Stress: Not on file Relationships ??? Social connections: Talks on phone: Not on file Gets together: Not on file Attends rastafari service: Not on file Active member of club or organization: Not on file Attends meetings of clubs or organizations: Not on file Relationship status: Not on file ??? Intimate partner violence: Fear of current or ex partner: Not on file Emotionally abused: Not on file Physically abused: Not on file Forced sexual activity: Not on file Other Topics Concern ??? Bike Helmet Yes ??? History of Breast Feeding Yes ??? Self-Exams No ??? Caffeine Concern No ??? Hobby Hazards No ??? Sleep Concern No ??? Daily Calcium Supplement No ??? Lead Exposure No ??? Special Diet No ??? Daily Vitamin D Supplement No ??? Service No ??? Stress Concern No ??? Domestic Violence in home No ??? Radon exposure No ??? Weight Concern No ??? Exercise Yes ??? Seat Belt Yes ??? Well water No ??? Firearms in home No Social History Narrative ??? Not on file Past Surgical History: Procedure Laterality Date ??? Bunnion, bilateral ??? SECTION 10/2003 ??? WISDOM TOOTH EXTRACTION Bilateral Review of Systems Review of Systems Constitutional: Negative. HENT: Negative. Eyes: Negative. Respiratory: Negative. Cardiovascular: Negative. Gastrointestinal: Negative. Endocrine: Negative. Genitourinary: Negative. Musculoskeletal: Negative. Skin: Negative. Allergic/Immunologic: Negative. Neurological: Negative. Hematological: Negative. Psychiatric/Behavioral: Negative. Objective: Vitals: 10/20/20 1426 BP: 145/80 Pulse: 69 Exam: Const: Appears pleasant. No signs of apparent distress present. Alert and oriented. Patient is a good historian. Head/Face: Atraumatic, normocephalic and no lesions or masses. Eyes: Conjunctivae pink.No icterus of the sclerae bilaterally. ENMT: Oral mucosa: pink and moist with no lesions. Neck: Supple. Palpation reveals no lymphadenopathy, swelling or tenderness. Trachea midline. Resp: Respirations are regular. Lungs are clear bilaterally. CV: Rate is regular. Rhythm is regular. Extremities: No clubbing, cyanosis or edema. Breasts: Breast exam was performed while patient was in a supine position and in a sitting postion. Breasts are Medium in size and symmetrical. No dimpling of the breasts bilaterally. Right breast normal and no dominant mass. Left breast with small, non tender, palpable lump ~7:00 position. Bilateral infraclavicular nodes are non-palpable. Nipples: There is no nipple discharge, dimpling or nipple retractions. Axillae: Axillae are normal to palpation bilaterally, but no lymphadenopathy of the axillae. Musculo: Walks with a normal gait for age. Upper Extremities: Full ROM bilaterally. Lower Extremities: Full ROM bilaterally. Skin: No jaundice, lesion, rash. Neuro: Upper Extremities: Lower Extremities: Neuro reveals no focal deficits. Today's imaging reveals: Exam Date:1Exam:MRI BREAST BILATERAL WO AND W IV CONTRAST CLINICAL HISTORY: Encounter screening for malignant neoplasm of breast. Family history of malignant neoplasm of breastin sister. Tyrer-Cuzick Model Lifetime risk 34.5%. COMPARISON: MRI from 09/03/2019 and 08/15/2018, mammogram from 03/17/2020 TECHNIQUE: Routine breast MRI was performed without and with IV contrast. 13 of 15ml multihance 3D recons and CAD were utilized/performed. FINDINGS: Background enhancement is mild. There is heterogeneous fibroglandular tissue. Heart is enlarged. The localizer series is otherwise unremarkable. No extramammary disease is identified. RIGHT BREAST: There is a biopsy clip seen superiorly/posteriorly. There are multiple small benign-appearing enhancing foci. There are a few scattered cysts. There is no evidence for suspicious solid or cystic mass. There is no abnormal ductal or parenchymal enhancement. No abnormal lymph nodes are seen. LEFT BREAST: There is a biopsy clip in the lateral left breast. There are multiple small benign-appearing enhancing foci. There are a few scattered cysts. Stable heterogeneously mildly enhancing nodule in the lateral breast measuring 1.3 x 0.8 cm. There is no evidence for suspicious solid or cystic mass. There is no abnormal ductal or parenchymal enhancement. No abnormal lymph nodes are seen. IMPRESSION: No evidence for malignancy in either breast. BI-RADS 2 - benign findings. Exam Date:1Exam:ULTRASOUND BREASTS BILATERAL LIMITED CLINICAL HISTORY: Bilateral breast abnormal imaging. History of left breast benign biopsy [...] breast at 7 o'clock 3 to 4 cm from nipple there is a hypoechoic solid nodule measuring 5x 4 x 5 mm, previously 6 x 6 x 8 mm. There is a biopsy clip. Previously sampled. IMPRESSION: 1. Benign-appearing septated cyst in the right breast. No significant change. 2. Decreased size of biopsy proven benign left breast lesion. 3. No sonographic evidence of malignancy. Assessment / Plan: 1. Dense breasts Ultrasound dense breast bilateral complete Ultrasound dense breast bilateral complete 2. Breast cancer screening, high risk patient ([facility] or External) Mammography 3D screening bilateral with CAD & martinez ([facility] or External) Mammography 3D screening bilateral with CAD & martinez Assessment: The patient has a benign exam and and benign bilateral sonogram and MRI today. Follow-up: 1. The patient will follow up in six months with bilateral screening mammogram and DBS. 2. High risk MRI due in one year. We will continue to alternate every six months. At today's appointment we discussed the physical [...] details were verified and edited as appropriate. Signature: Kelly Gatica NP Date: October 20, 2020 Time: 2:51 PM This document or parts of this document, were dictated using Renkoo speaking software. A reasonable attempt at proofreading has been made to minimize errors. Please call with any questions or corrections. documented in this encounter Plan of Treatment Upcoming Encounters Date Type Specialty Care Team Description 05/12/2022 Office Visit General Surgery Kelly Gatica NP [address] [place] [id number] (Wo rk) documented as of this encounter Procedures Procedure Name Priority Date/Time Associated Diagnosis Comme nts US DENSE BREAST STAT 05/11/2021 10:30 AM Dense breasts Resu lts for this BILATERAL COMPLETE EDT procedure are in the results section. MAMMO 3D SCREENING STAT 05/11/2021 10:16 AM Breast cancer R esults for this BILATERAL W CAD W EDT screening, high risk pr ocedure are in [facility] patient the results section. documented in this encounter Results Ultrasound dense breast bilateral complete (05/11/2021 10:30 AM EDT) Anatomical Region Laterality Modality Breast Bilateral Ultrasound Specimen Narrative EDELMIRA MERGE - 05/11/2021 11:18 AM EDT CLINICAL HISTORY: ??Screening mammogram. Dense breast tissue. Last Clinical Breast Exam:October 2020.Tyrer-Cuzick Model 10-year risk: 3.7% (Average: 2.7%) Tyrer-Cuzick Model lifetime risk: 15.6% (Average: 11.4%). COMPARISON: ??March 17, 2020 and [facility] mammograms. TECHNIQUE: ??Digital imaging was perform ed with tomosynthesis. ??Computer-aided detection was utilized for image review. FINDINGS: ??Bilateral screening mammogra m: There is a circumscribed mass in the left breast at about the 3 o'clock position consistent with a simple cyst by ultrasound. ??This is increased slightly in size. There is no other enlarging mass or new malignant type calcification. ??Site marker is noted in the upper outer right breast with no associated abnormality in this area. Bilateral dense breast screening ultraso und: Right breast: In the 0200 hours retroare olar area there is a 7 x 5 x 4 mm cyst cluster which is stable compared to the initial study of 03/2020. Left breast: Simple cyst noted at the 2 to 3 o'clock position measuring 2.2 cm corresponding to the mammographic finding. At the 5 to 6 o'clock position 2 to 3 cm from the nipple there is oval heterogeneous circumscribed nodule measuring 15 x 9 x 4 mm possibly representing an intramammary lymph node and this is unchanged from 2018. At the 7 o'clock position 3 to 4 cm from the nipple, there is a hypoechoic oval nodule measuring 5 x 4 x 3 mm. ??A biopsy clip is noted and this is unchanged from 2020. At the 11 o'clock position 3 cm from the nipple there is a 7 x 7 x 3 mm hypoechoic oval solid nodule which is unchanged from 2019. At the 11 o'clock position 2 cm from the nipple, there is a 9 x 6 x 4 mm cyst cluster which has a benign appearance. IMPRESSION: ??No evidence of malignancy. ??Annual screening mammography is recommended in 1 year. CLASSIFICATION: BI-RADS 2 - BENIGN FINDI NGS. ACR Breast Density: C- Heterogeneously d ense ResultCode: BR 2 C Dictated by: SHELTON ALVAREZ M.D. on 05/11/2021 Transcribed by: [email or web address] on 05/11/2021 11:17 A M CDS G code: , , , , CDS Modifier: , , , , cc: Procedure Note Shelton Alvarez MD - 05/11/2021 CLINICAL HISTORY: Screening mammogram. D ense breast tissue. Last Clinical Breast Exam:October 2020.Tyrer-Cuzick Model 10-year risk: 3.7% (Average: 2.7%) Tyrer- Cuzick Model lifetime risk: 15.6% (Average: 11.4%). COMPARISON: March 17, 2020 and [facility] mammograms. TECHNIQUE: Digital imaging was performed with tomosynthesis. Computer-aided detection was utilized for image review. FINDINGS: Bilateral screening mammogram: There is a circumscribed mass in the left breast at about the 3 o'clock position consistent with a simple cyst by ultrasound. This is increased slightly in size. There is no other enlarging mass or new malignant type calcification. Site marker is noted in the upper outer right breast with no associated abnormality in this area. Bilateral dense breast screening ultraso und: Right breast: In the 0200 hours retroare olar area there is a 7 x 5 x 4 mm cyst cluster which is stable compared to the initial study of 03/2020. Left breast: Simple cyst noted at the 2 to 3 o'clock position measuring 2.2 cm corresponding to the mammographic finding. At the 5 to 6 o'clock position 2 to 3 cm from the nipple there is oval heterogeneous circumscribed nodule measuring 15 x 9 x 4 mm possibly representing an intramammary lymph node and this is unchanged from 2018. At the 7 o'clock position 3 to 4 cm from the nipple, there is a hypoechoic oval nodule measuring 5 x 4 x 3 mm. A biopsy clip is noted and this is unchanged from 2020. At the 11 o'clock position 3 cm from the nipple there is a 7 x 7 x 3 mm hypoechoic oval solid nodule which is unchanged from 2019. At the 11 o'clock position 2 cm from the nipple, there is a 9 x 6 x 4 mm cyst cluster which has a benign appearance. IMPRESSION: No evidence of malignancy. A nnual screening mammography is recommended in 1 year. CLASSIFICATION: BI-RADS 2 - BENIGN FINDI NGS. ACR Breast Density: C- Heterogeneously d ense ResultCode: BR 2 C Dictated by: SHELTON ALVAREZ M.D. on 05/11/2021 Transcribed by: [email or web address] on 05/11/2021 11:17 A M CDS G code: , , , , CDS Modifier: , , , , cc: Performing Organization Address City/State/ZIP Code Phon e Number [facility] ([facility] or External) Mammography 3D screening bilateral with CAD & martinez (05/11/2021 10:16 AM EDT) Anatomical Region Laterality Modality Mammography Specimen Narrative [facility] - 05/11/2021 11:18 AM EDT CLINICAL HISTORY: ??Screening mammogram. Dense breast tissue. Last Clinical Breast Exam:October 2020.Tyrer-Cuzick Model 10-year risk: 3.7% (Average: 2.7%) Tyrer-Cuzick Model lifetime risk: 15.6% (Average: 11.4%). COMPARISON: ??March 17, 2020 and [facility] mammograms. TECHNIQUE: ??Digital imaging was perform ed with tomosynthesis. ??Computer-aided detection was utilized for image review. FINDINGS: ??Bilateral screening mammogra m: There is a circumscribed mass in the left breast at about the 3 o'clock position consistent with a simple cyst by ultrasound. ??This is increased slightly in size. There is no other enlarging mass or new malignant type calcification. ??Site marker is noted in the upper outer right breast with no associated abnormality in this area. Bilateral dense breast screening ultraso und: Right breast: In the 0200 hours retroare olar area there is a 7 x 5 x 4 mm cyst cluster which is stable compared to the initial study of 03/2020. Left breast: Simple cyst noted at the 2 to 3 o'clock position measuring 2.2 cm corresponding to the mammographic finding. At the 5 to 6 o'clock position 2 to 3 cm from the nipple there is oval heterogeneous circumscribed nodule measuring 15 x 9 x 4 mm possibly representing an intramammary lymph node and this is unchanged from 2018. At the 7 o'clock position 3 to 4 cm from the nipple, there is a hypoechoic oval nodule measuring 5 x 4 x 3 mm. ??A biopsy clip is noted and this is unchanged from 2020. At the 11 o'clock position 3 cm from the nipple there is a 7 x 7 x 3 mm hypoechoic oval solid nodule which is unchanged from 2019. At the 11 o'clock position 2 cm from the nipple, there is a 9 x 6 x 4 mm cyst cluster which has a benign appearance. IMPRESSION: ??No evidence of malignancy. ??Annual screening mammography is recommended in 1 year. CLASSIFICATION: BI-RADS 2 - BENIGN FINDI NGS. ACR Breast Density: C- Heterogeneously d ense ResultCode: BR 2 C Dictated by: SHELTON ALVAREZ M.D. on 05/11/2021 Transcribed by: [email or web address] on 05/11/2021 11:17 A M CDS G code: , , , , CDS Modifier: , , , , cc: Procedure Note Shelton Alvarez MD - 05/11/2021 CLINICAL HISTORY: Screening mammogram. D ense breast tissue. Last Clinical Breast Exam:October 2020.Tyrer-Cuzick Model 10-year risk: 3.7% (Average: 2.7%) Tyrer- Cuzick Model lifetime risk: 15.6% (Average: 11.4%). COMPARISON: March 17, 2020 and [facility] mammograms. TECHNIQUE: Digital imaging was performed with tomosynthesis. Computer-aided detection was utilized for image review. FINDINGS: Bilateral screening mammogram: There is a circumscribed mass in the left breast at about the 3 o'clock position consistent with a simple cyst by ultrasound. This is increased slightly in size. There is no other enlarging mass or new malignant type calcification. Site marker is noted in the upper outer right breast with no associated abnormality in this area. Bilateral dense breast screening ultraso und: Right breast: In the 0200 hours retroare olar area there is a 7 x 5 x 4 mm cyst cluster which is stable compared to the initial study of 03/2020. Left breast: Simple cyst noted at the 2 to 3 o'clock position measuring 2.2 cm corresponding to the mammographic finding. At the 5 to 6 o'clock position 2 to 3 cm from the nipple there is oval heterogeneous circumscribed nodule measuring 15 x 9 x 4 mm possibly representing an intramammary lymph node and this is unchanged from 2018. At the 7 o'clock position 3 to 4 cm from the nipple, there is a hypoechoic oval nodule measuring 5 x 4 x 3 mm. A biopsy clip is noted and this is unchanged from 2020. At the 11 o'clock position 3 cm from the nipple there is a 7 x 7 x 3 mm hypoechoic oval solid nodule which is unchanged from 2019. At the 11 o'clock position 2 cm from the nipple, there is a 9 x 6 x 4 mm cyst cluster which has a benign appearance. IMPRESSION: No evidence of malignancy. A nnual screening mammography is recommended in 1 year. CLASSIFICATION: BI-RADS 2 - BENIGN FINDI NGS. ACR Breast Density: C- Heterogeneously d ense ResultCode: BR 2 C Dictated by: SHELTON ALVAREZ M.D. on 05/11/2021 Transcribed by: [email or web address] on 05/11/2021 11:17 A M CDS G code: , , , , CDS Modifier: , , , , cc: Performing Organization Address City/State/ZIP Code Phon e Number [facility] BRUCE MICHAEL documented in this encounter Visit Diagnoses Diagnosis Dense breasts - Primary Inconclusive mammogram Breast cancer screening, high risk patie nt Screening mammogram for high-risk patien t documented in this encounter Care Teams Terrapin Fisher Relationship Specialty Start Date End Date Mike Bernstein, PCP - General Internal Medicine 12/28/[address] [place] [phone] Lucy Webb, Consulting Physician Obstetrics and 06/08/17 Gynecology [address] [place] [address] Kelly Gatica, LOLA Nurse Practitioner Family Medicine 10/20/[address] [place] [address], [address] [place] [address] documented as of this encounter
--- OUTSIDE RECORDS SUMMARY | 2022-01-24 17:11 | XMS_ITS | Encounter Summary ---
:1970 Author Organization [facility] Address [address] [place] [address] Phone Care Team Providers Name Role Phone Lucy Webb MD Unavailable Mike Bernstein MD Primary Care Provider [phone] Reason for Referral (Emergency) - Closed Specialty Diagnoses / Procedures Referred By Contact Refer red To Contact Diagnoses Abnormal finding on breast imaging Kelly Gatica NP Procedures Vacuum assist ultrasound guided breast biopsy [address], [address] [place], [place] [address] Referral ID Status Reason Start Date Expiration Date Visits Requ ested Visits Authorized [id number] Closed 03/18/2020 09/14/2020 1 1 Encounter Details Date Type Department Care Team Description 03/18/2020 Telephone Surgical Professiona Kelly Pereira NP [address] [place], [place] [id number], [address] [place], [place] [id number] (Wo rk) Social History Tobacco Use Types [...] Telephone Encounter - Kelly Gatica NP - 03/18/2020 1:02 PM EDT Left breast us guided bx documented in this encounter Plan of Treatment Upcoming Encounters Date Type Specialty Care Team Description 05/12/2022 Office Visit [place] [address] [place], [place] [phone] (Wo rk) documented as of this encounter Results Vacuum assist ultrasound guided breast biopsy unilateral (03/30/2020) Anatomical Region Laterality Modality Breast Right Mammography Narrative This result has an attachment that is no t available. Performing Organization Address City/[facility]/ZIP Code Phon e Number [facility]- documented in this encounter Visit Diagnoses Diagnosis Abnormal finding on breast imaging - Melany schuler documented in this encounter Care Teams Roofer Helper Relationship Specialty Start Date End Date Mike Bernstein, PCP - General Internal Medicine 12/28/[address] [place] [phone] Lucy Webb, Consulting Physician Obstetrics and 06/08/17 Gynecology [address] [place] [address] documented as of this encounter
--- OUTSIDE RECORDS SUMMARY | 2022-01-24 17:11 | XMS_ITS | Encounter Summary ---
:1970 Author Organization [facility] Address [address] [place] [address] Phone Care Team Providers Name Role Phone Lucy Webb MD Unavailable Mike Bernstein MD Primary Care Provider Kelly Gatica NP Unavailable Encounter Details Date Type Department Care Team Description 10/20/2020 Telephone [facility] Physicians Sa jake Gatica NP Surgical Services - [address] [place] [address] [facility] [place], [place] [address] [phone] Social History Tobacco Use Types Packs/Day Years [...] this encounter Miscellaneous Notes Telephone Encounter - Afshan Lobito - 10/20/2020 3:29 PM EDT ELENA/Azam is calling just to make sure that we received the MRI report. It was faxed to the [phone]. It is in Epic Thank you documented in this encounter Plan of Treatment Upcoming Encounters Date Type Specialty Care Team Description 05/12/2022 Office Visit General Surgery Kelly Gatica, LOLA [address] [place] [address], [address] [place], [place] [phone] (Wo rk) documented as of this encounter Visit Diagnoses Not on filedocumented in this encounter Care Teams Block Engraver Relationship Specialty Start Date End Date Mike Bernstein PCP - General Internal Medicine 12/28/[address] [place] [phone] Lucy Webb, Consulting Physician Obstetrics and 06/08/[address] [place] [address] Kelly Gatica NP Nurse Practitioner Family Medicine 10/20/[address] [place] [address], [address] [place] [address] documented as of this encounter
--- OUTSIDE RECORDS SUMMARY | 2022-01-24 17:11 | XMS_ITS | Encounter Summary ---
:1970 Author Organization [facility] Address [address] [place] [address] Phone Care Team Providers Name Role Phone CharlesDebbie gonzalez Dylan ANG Primary Care Provider Lucy Webb MD Unavailable Mike Bernstein MD Primary Care Provider [phone] Kelly Gatica NP Unavailable Encounter Details Date Type Department Care Team Description 06/15/2017 Orders Only Health Information Provider, Historical, Management [address] [place] [address] [address] [place] [address] [place] [address] [phone] Social History Tobacco Use Types Packs/Day Years [...] Visit General Surgery Kelly Gatica NP [address] [facility] [place] [address] (Wo rk) documented as of this encounter Procedures Procedure Name Priority Date/Time Associated Diagnosis Comme nts MAMMO SCAN LINK Routine 05/30/2013 IMAGING SCAN Routine 05/30/2013 LAB SCAN Routine 05/30/2013 documented in this encounter Results LAB SCAN LINK (05/30/2013) Narrative This result has an attachment that is no t available. MAMMO SCAN LINK (05/30/2013) Anatomical Region Laterality Modality Mammography Narrative This result has an attachment that is no t available. documented in this encounter Visit Diagnoses Not on filedocumented in this encounter Care Teams Bus Person Relationship Specialty Start Date End Date Debbie De La Vega, PCP - General Family Medicine 06/05/17 UPSTREAM BIOMANUFACTURING TECHNICIAN [address] [place] [phone] Mike Bernstein, PCP - General Internal Medicine 12/28/[address] [place] [phone] Lucy Webb, Consulting Physician Obstetrics and 06/08/[address] [place] [address] Kelly Gatica NP Nurse Practitioner Family Medicine 10/20/[address] [place] [address], [address] [place] [address] documented as of this encounter
--- OUTSIDE RECORDS SUMMARY | 2022-01-24 17:11 | XMS_ITS | Encounter Summary ---
:1970 Author Organization [facility] Address [address] [place] [address] Phone Care Team Providers Name Role Phone Unavailable Primary Care Provider Unavailable Encounter Details Date Type Department Care Team Description 02/08/2017 Telephone [facility] Physicians Denise Ferrara, spike machine heater Services - [address] [place] [address] [place] [address] [address] [place], [place] [phone] Social History Tobacco Use Types Packs/Day Years Used Date Never Assessed Sex Assigned at Date Recorded Not on file Job Start Date Occupation Industry Not on file Not on file Not on file documented as of this encounter Miscellaneous Notes Telephone Encounter - Denise Ferrara RN - 02/08/2017 10:37 AM EDT Patient called back- she would like to establish care with Dr. Rogers. Appt made 05/22/17 @ 10am with Dr. Rogers. Patient states understanding. Letter and paperwork mailed to her. elephone Encounter - Denise Ferrara RN - 02/08/2017 10:26 AM EDT Received records from Dr. Do, she is leaving the area and patient will need to establish with a breast surgeon for continued fup care. I called and LM for patient to call me back to set up an appt. documented in this encounter Plan of Treatment Upcoming Encounters Date Type Specialty Care Team Description 05/12/2022 Office Visit General Surgery Kelly Gatica, LOLA [address] [facility], [place] [address] (Wo rk) documented as of this encounter Visit Diagnoses Not on filedocumented in this encounter
--- OUTSIDE RECORDS SUMMARY | 2022-01-24 17:11 | XMS_ITS | Encounter Summary ---
:1970 Author Organization [facility] Address [address] [place] [address] Phone Care Team Providers Name Role Phone Lucy Webb MD Unavailable Mike Bernstein MD Primary Care Provider [phone] Kelly Gatica STRATEGY PLANNING CONSULTANT Unavailable Encounter Details Date Type Department Care Team Description 08/22/2019 Telephone [facility] Physicians Sumaya Smith, MSN, ANP-C Surgical Services - [address] [place] [address] [place] [address] [address] [place], [place] [address] [phone] Social History Tobacco Use Types Packs/Day Years [...] this encounter Miscellaneous Notes Telephone Encounter - Susy Ascencio MA - 08/22/2019 10:13 AM EST MRI NE 09/03 documented in this encounter Plan of Treatment Upcoming Encounters Date Type Specialty Care Team Description 05/12/2022 Office Visit General Surgery Kelly Gatica NP [address] [facility], [address] [place] [address] (Wo rk) documented as of this encounter Visit Diagnoses Not on filedocumented in this encounter Care Teams Sales Order Specialist Relationship Specialty Start Date End Date Mike Bernstein, PCP - General Internal Medicine 12/28/[address] [place] [phone] Lucy Webb, Consulting Physician Obstetrics and 06/08/[address] [place] [phone] Kelly Gatica NP Nurse Practitioner Family Medicine 10/20/[address] [place] [address], [address] [place], [place] [phone] documented as of this encounter
--- OUTSIDE RECORDS SUMMARY | 2022-01-24 17:11 | XMS_ITS | Encounter Summary ---
:1970 Author Organization [facility] Address [address] [place] [address] Phone Care Team Providers Name Role Phone CharlesDebbie gonzalez Dylan ARREDONDOP Primary Care Provider Lucy Webb MD Unavailable Encounter Details Date Type Department Care Team Description 08/09/2018 Telephone [facility] Physicians Surgical [facility] [place] [phone] Social History Tobacco Use Types Packs/Day [...] this encounter Miscellaneous Notes Telephone Encounter - Lona M Charo - 08/09/2018 2:25 PM EST Called pt to let her know she is scheduled for her MRI on 08/15/18 @ 12:30. [place] office documented in this encounter Plan of Treatment Upcoming Encounters Date Type Specialty Care Team Description 05/12/2022 Office Visit General Surgery Kelly Gatica, LOLA [address] [address] (Wo rk) documented as of this encounter Visit Diagnoses Not on filedocumented in this encounter Care Teams Timber Bucker Relationship Specialty Start Date End Date Debbie De La Vega, PCP - General Family Medicine 06/05/[address] [phone] Lucy Webb, Consulting Physician Obstetrics and 06/08/[address] [place] [address] documented as of this encounter
--- OUTSIDE RECORDS SUMMARY | 2022-01-24 17:11 | XMS_ITS | Encounter Summary ---
:1970 Author Organization [facility] Address [address] [place] [address] Phone Care Team Providers Name Role Phone Debbie De La Vega Dylan ANG Primary Care Provider Lucy Webb MD Unavailable Encounter Details Date Type Department Care Team Description 06/08/2017 Telephone [facility] Physicians Sumaya Smith, MSN, ANP-C Surgical Services - [address] [place] [address] Specialty [address] [place] [address] [place] [id number] [address] [place], [place] [phone] [phone] Social History Tobacco Use Types Packs/Day Years [...] this encounter Miscellaneous Notes Telephone Encounter - Jennifer Romero MA - 06/13/2017 11:49 AM EST I spoke with George from Jon`s office and she ONLY had a bilateral breast biopsy in 2012. I have received and Marce will review. elephone Encounter - Jennifer Romero MA - 06/09/2017 10:42 AM EST I spoke with Lauren from the medical records in [place] and they do not have a patient by that name orDOB. I just spoke with Argenis from [facility] Medical Records and the only one she has is the left breastpathology from 2016. Patient stated that I could get it from Dr. Webb`s office, I will send a faxover to retrieve it. Telephone Encounter - KENNETH Stallings, ANP-C - 06/08/2017 4:38 PM EST She had a right breast core bx at some point in [place], can you see if can track down at their hospital? documented in this encounter Plan of Treatment Upcoming Encounters Date Type Specialty Care Team Description 05/12/2022 Office [place] [address] [place] [address] (Wo rk) documented as of this encounter Visit Diagnoses Not on filedocumented in this encounter Care Teams Making Line Worker Relationship Specialty Start Date End Date Debbie De La Vega, PCP - General Family Medicine 06/05/[address] [phone] Lucy Webb, Consulting Physician Obstetrics and 06/08/[address] [place] [address] documented as of this encounter
--- OUTSIDE RECORDS SUMMARY | 2022-01-24 17:11 | XMS_ITS | Encounter Summary ---
:1970 Author Organization [facility] Address [address] [place] [address] Phone Care Team Providers Name Role Phone Debbie De La Vega Dylan ARREDONDOP Primary Care Provider Lucy Webb MD Unavailable Reason for Referral Radiology (Emergency) - Closed Specialty Diagnoses / Procedures Referred By Contact Refer red To Contact Diagnoses Abnormal finding on breast imaging Mrace Smith MSN, ANP-C Procedures Ultrasound breast unilateral limited [address] [place] [address] Dr Sullivan [place] 130 66 Referral ID Status Reason Start Date Expiration Date Visits Requ ested Visits Authorized [id number] Closed 09/05/2018 03/04/2019 1 1 MRI/CAT/PET Scan (Emergency) - Closed Specialty Diagnoses / Procedures Referred By Contact Refer red To Contact Diagnoses Dense breasts Family history of breast cancer Breast cancer screening, high risk patient Marce Smith MSN, ANP-C Procedures MRI breast bilateral without and with IV contrast [address] [place] [address] Dr Sullivan [place] 130 66 Referral ID Status Reason Start Date Expiration Date Visits Requ ested Visits Authorized [id number] Closed 09/05/2018 03/04/2019 1 1 Radiology (Emergency) - Closed Specialty Diagnoses / Procedures Referred By Contact Refer red To Contact Diagnoses Dense breasts Marce Smith MSN, ANP-C Procedures Ultrasound dense breast bilateral complete [address] [place] [address] Dr Sullivan SC 130 66 Referral ID Status Reason Start Date Expiration Date Visits Requ ested Visits Authorized [id number] Closed 03/07/2019 09/03/2019 1 1 Radiology (Emergency) - Closed Specialty Diagnoses / Procedures Referred By Contact Refer red To Contact Diagnoses Dense breasts Marce Smith, MSN, ANP-C Procedures Ultrasound dense breast bilateral complete [address] [place] [address] Dr Sullivan SC 130 79 Referral ID Status Reason Start Date Expiration Date Visits Requ ested Visits Authorized [id number] Closed 03/07/2019 09/03/2019 1 1 Reason for Visit Reason Comments Follow-up Encounter Details Date Type Department Care Team Description 03/05/2018 Office Visit [facility] Marce Smith, MSN, Encounter for screening mammogram for high-risk patient (Primary Dx); Physicians Surgical ANP-C Dense breasts; Services - [address] melaniee Family history of breast cancer; sister age 45; [facility] Breast cancer screening, high risk patie nt; [address] [place] [address] Abnormal finding on breast imaging [place] [address] Social History Tobacco Use Types [...] Sign Reading Time Taken Comments Blood Pressure 130/80 03/05/2018 9:27 AM EDT Pulse 69 03/05/2018 9:27 AM EDT Temperature - - Respiratory Rate - - Oxygen Saturation - - Inhaled Oxygen Concentration - - Weight 64.9 kg (143 lb) 03/05/2018 9:27 AM EDT Height 175.3 cm (5' 9) 03/05/2018 9:27 AM EDT Body Mass Index 21.12 03/05/2018 9:27 AM EDT documented in this encounter [...] of this encounter Patient Instructions Patient InstructionsKENNETH Barnes, ANP-C - 03/05/2018 9:30 AM EDT We will see you in one year for exam and mammogram with ultrasound We will set up your MRI and ultrasound in 6 months documented in this encounter Progress Notes KENNETH Barnes, ANP-C - 03/02/2018 12:19 PM EDT Assessment/Plan: Trina was seen today for a follow up appointment and breast imaging. 1. Encounter for screening mammogram for high-risk patient 2. Dense breasts She was here today for a clinical breast examination that revealed no palpable abnormalities, she does have dense breast tissue but I was unable to appreciate any nodularity. She had a bilateral screening mammogram which revealed dense breast tissue, she had bilateral breast ultrasound which shows stable nodules, she does have complex cyst in the left breast so they recommend a six-month ultrasound follow-up of the left breast only. We will set her up for a six-month follow-up left breast ultrasound and she will have her MRI performed the same day. Will call her with those results. We will see her back in 1 year for another examination with a bilateral screening mammogram and bilateral dense breast ultrasound screening. - Mammography screening bilateral with CAD; Future, 02/2019 - Ultrasound dense breast bilateral complete; Future, 02/2019 3. Family history of breast cancer; sister age 45 There are no new cancers in her family that she is aware of. 4. Breast cancer screening, high risk patient - MRI breast bilateral without and with IV contrast; Future, 08/2018 Her Salome risk is 21% and we calculated a Tyrer-Cuzick Risk (KATHIA) Risk was calculated today which takes into account her family, menstrual and hormone replacement history, shows her lifetime risk of developing breast cancer is 31%, so we will begin to obtain annual MRI to alternate every 6 months withher annual mammogram to assess for occult disease. She will have one or the other, every 6 months with a CBE. We discussed the benefit of MRI breast surveillance in terms of its heightened sensitivity when compared to screening mammography as well as the lack of exposure to ionizing radiation. We alsodiscussed the downfall of MRI???s relatively poor specificity leading to the possibility of false positive findings. We reviewed the rare risk of complication associated with the gadolinium-based contrast agent and the possible need for pre-exam assessment of renal function. We look for to seeing at her next appointment and we would be happy to see her in the interim if needed. She understands she can contact us at any time if she notes any change in her self breast/chest wallexam, or has any questions regarding her breast health. Dr Rogers's office follows NCCN guidelines for benign and malignant breast disease, she is my collaborating physician. I have followed protocols established by Dr Rogers, and periodically review charts with her. This document or parts of this document, were dictated using [employer] software. A reasonableattempt at proofreading has been made to minimize errors. Please call with any questions or corrections. Subjective: Patient ID: Trina BirdDaniel is a luis eduardo 47 years female here today for a follow up. Pertinent History: Trina was initially seen 05/[address] Do office to establish breast care follow up.The she has had bilateral breast biopsies performed in the past which were negative. These are notedbelow. ?? She has a family history a sister who would been treated for breast cancer at the age of 45, she tells me her sister tested BRCA negative. ?? LEFT breast EXCISIONAL biopsy 2015, Dr Do; benign tubular adenoma, no ?? 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 Social History: She is , she is the Arts Director at [employer], she has 2 children a son and a daughter, alcohol intake 3 to 4 glasses per week, nonsmoker ?? HPI / Interval History: Trina is here for a follow up appointment and a clinical breast exam, with imaging. She is doing well, her children are getting ready to go back to school, she has continued to work through the summer. Her son will be going to this year. There are no new cancers reported in her family that she is aware. She does perform self breast/chest wall examination and notes no change or nipple discharge. The most recent breast imaging reveals: Mammography screening bilateral with CAD & tomosynthesis Details Reading Physician Reading Date Result Priority Arash Curiel MD 03/05/2018 Narrative CLINICAL HISTORY: ??Screening Mammogram. ?? Last Clinical Breast Exam: ??09/2017. ??Salome Model 5 year risk: ?? 2.5% (Average: ??1.1%). ?? Salome Model lifetime risk: ?? 21.2% ??(Average: ??11.6%). Dense Breasts. COMPARISON: ??Priors dating back to 01/07/2016. TECHNIQUE: ??Digital Mammogram with Breast Tomosynthesis of each breast were obtained with CAD. FINDINGS: ??The breast tissue is heterogeneously dense, which could obscure detection of small masses. No developing mass or suspicious calcifications are seen. A biopsy clip is again noted in the right breast. IMPRESSION: ??No mammographic evidence of malignancy. A follow up mammogram is recommended in one year as per the [employer]. ACR Breast Density:C- Heterogeneously dense CLASSIFICATION: BI-RADS 2 - BENIGN FINDINGS ResultCode: BR 2 C Dictated by: ARASH CURIEL M.D. on 03/05/2018 Transcribed by: yoel on 03/05/2018 10:47 AM cc: Ultrasound dense breast bilateral complete Details Reading Physician Reading Date Result Priority Arash Curiel MD 03/05/2018 Narrative CLINICAL HISTORY: ??Screening Mammogram. ?? Last Clinical Breast Exam: ??09/2017. ??Salome Model 5 year risk: ?? 2.5% (Average: ??1.1%). ?? Salome Model lifetime risk: ?? 21.2% ??(Average: ??11.6%). Dense Breasts. COMPARISON: ??01/31/2017 and mammogram of 03/05/2018. FINDINGS: ??Screening ultrasound of all four quadrants, axilla and retroareolar regions of both breasts were performed for dense breast parenchyma. ??There is heterogeneous background echotexture. Within the right breast, there is a stable solid lesion at 12:00 position 3 cm from nipple measuring 7 x 5 x 5 mm, previously 7 x 4 x 4 mm. ??This contains a biopsy clip and is compatible with previously biopsied fibroadenoma. ??There is a simple cyst in the 6 o'clock position 1 cm from nipple measuring less than 1 cm. Within the left breast, there are several subcentimeter simple cyst. ??There is a complex cyst or solid lesion in the 5 to 6 o'clock position 2 to 3 cm from the nipple measuring 1.4 x 1.1 x 0.6 cm, notpreviously seen. ??There is a complex cyst versus solid lesion at 11:00 position 3 cm from nipple measuring 7 x 8 x 4 mm, not previously seen. IMPRESSION: ??Benign findings in the right breast. Probable benign findings in the left breast with complex cysts or solid lesions at 5 to 6:00 position and 11:00 position. ??Follow-up left breast ultrasound in 6 months is recommended. CLASSIFICATION: ??BI-RADS 3 - PROBABLY BENIGN FINDINGS Patient will receive a reminder letter from our office approximately two weeks prior to the recommended follow up date. Dictated by: ARASH CURIEL M.D. on 03/05/2018 Transcribed by: yoel on 03/05/2018 11:31 AM No Known Drug Allergies Prior to Admission medications Not on File Previous Medical History: personally reviewed, updated and noted in EPIC. Previous Surgical History: personally reviewed, updated and noted in EPIC. Family & Social History: personally reviewed, updated and noted in EPIC. Review of Systems Constitutional: Negative. Negative for appetite change and unexpected weight change. HENT: Negative. Eyes: Negative. Respiratory: Negative. Negative for cough and shortness of breath. Cardiovascular: Negative. Gastrointestinal: Negative. Endocrine: Negative. Genitourinary: Negative. Musculoskeletal: Negative. Negative for arthralgias and myalgias. Skin: Negative. Neurological: Negative. Negative for dizziness and headaches. Hematological: Negative. Psychiatric/Behavioral: Negative. Objective: Blood pressure 130/80, pulse 69, height 1.753 m (5' 9), weight 64.9 kg (143 lb), not currently . Physical Exam Constitutional: She [...] is normal. Judgment and thought content normal. The breast / chest wall examination was performed in the upright and supine position and reveals: dense breasts. Bilateral axillae: no lymphadenopathy LEFT & RIGHT breast/chest wall: no discoloration, no skin dimpling, puckering, or tethering, andeverted nipples with no discharge, no visible or palpable masses or nodules. documented in this encounter Plan of Treatment Upcoming Encounters Date Type Specialty Care Team Description 05/12/2022 Office Visit General Surgery Kelly Gatica, LOLA [address] [facility] [place], [place] [id number] (Wo rk) Scheduled Orders Name Type Priority Associated Diagnoses Order S chedule Ultrasound breast Imaging STAT Abnormal finding on Exp ected: 09/05/2018, unilateral limited breast imaging Expires : 03/05/2019 documented as of this encounter Procedures Procedure Name Priority Date/Time Associated Diagnosis Comme nts US DENSE BREAST STAT 03/07/2019 12:44 PM Dense breasts Resu lts for this BILATERAL COMPLETE EDT procedure are in the results section. MAMMO 3D SCREENING STAT 03/07/2019 12:40 PM Re sults for this BILATERAL W CAD W EDT procedure are in MARTINEZ the results section. documented in this encounter Results Ultrasound dense breast bilateral complete (03/07/2019 12:44 PM EDT) Anatomical Region Laterality Modality Breast Bilateral Ultrasound Specimen Narrative BETHIA MERGE - 03/07/2019 1:24 PM EDT CLINICAL HISTORY: ??Dense breasts. COMPARISON: ??Screening mammogram same d ay and 03/05/2018 ultrasound dense breast screening. TECHNIQUE: ??Ultrasound in all four quad rants and the retroareolar region was performed. FINDINGS: ??Screening ultrasound exam wa s performed given dense breast parenchyma. Echogenic breast tissue is seen with two findings as follows: 1. ??Left, 5:00 to 6:00, 2 to 3 cm from the nipple, 14 x 10 x 4 mm (prior 14 x 11 x 6 mm) oval-shaped hypoechoic complex cyst versus solid nodule. ??The lesion is parallel with circumscribed margins. ?? No vascularity or shadowing is seen. ??T he lesion has been followed since 02/2018. 2. ??Left, 11:00, 3 cm from the nipple, 7 x 6 x 4 mm (prior 7 x 8 x 4 mm) oval- shaped hypoechoic complex cyst versus solid nodule. ??The lesion is parallel with circumscribed margins. ??No vascularity o r shadowing is seen. ??The lesion has be en followed since 02/2018. Within the right breast a biopsy clip is seen. IMPRESSION: ??1. ??Left breast stable ap pearance of two complex cysts versus solid nodules. 2. ??Right breast grossly unremarkable u ltrasound dense breast screening. Please refer to the mammography report f or further information. Dictated by: EDGAR PEREZ M.D. on 03/07/20 19 Transcribed by: on 03/07/2019 01:22 P M cc: Procedure Note Edgar Perez MD - 03/07/2019 CLINICAL HISTORY: Dense breasts. COMPARISON: Screening mammogram same day and 03/05/2018 ultrasound dense breast screening. TECHNIQUE: Ultrasound in all four quadra nts and the retroareolar region was performed. FINDINGS: Screening ultrasound exam was performed given dense breast parenchyma. Echogenic breast tissue is seen with two findings as follows: 1. Left, 5:00 to 6:00, 2 to 3 cm from th e nipple, 14 x 10 x 4 mm [...] is seen. IMPRESSION: 1. Left breast stable appear ance of two complex cysts versus solid nodules. 2. Right breast grossly unremarkable ult rasound dense breast screening. Please refer to the mammography report f or further information. Dictated by: EDGAR PEREZ M.D. on 03/07/20 19 Transcribed by: CROW on 03/07/2019 01:22 P M cc: Performing Organization Address City/State/ZIP Code Phon e Number [facility] SJIA MERGE (SJIA or External) Mammography 3D screening bilateral with CAD & martinez (03/07/2019 12:40 PM EDT) Anatomical Region Laterality Modality Mammography Specimen Narrative SJIA MERGE - 03/07/2019 1:24 PM EDT CLINICAL HISTORY: Screening mammogram. High risk. ?? Dense breasts. Last Clinical Breast Exam: 12/2018 Tyrer-Cuzick Model 10-year risk: 8.2% (A verage: 2.5%) Tyrer-Cuzick Model lifetime risk: 34.3% (Average: 11.8%) COMPARISON: ??03/05/2018, 01/31/2017 and 1 08/24/2015 mammograms. TECHNIQUE: ??Craniocaudal and oblique vi ews were obtained digitally. ??Craniocaudal views were reviewed by CAD. ??Digital Breast Tomosynthesis was obtained. FINDINGS: ??The breast tissue is heterog eneously dense, which could obscure detection of small masses. ??A right breast biopsy clip is seen. No dominant mass, suspicious microcalcif ication, architectural distortion or skin/nipple thickening or retraction is seen. There are no significant changes compare d to the prior study/studies. Screening breast ultrasound exam, dictat ed separately, was also performed given the dense breast parenchyma demonstrating stable appearance of two complex cysts versus solid nodules in the left breast w ith maximum sizes of 14 and 7 mm. ??No s uspicious ultrasound features are seen. ??Within t he right breast a biopsy clip is seen. IMPRESSION: ??1. ??Left breast probable benign findings with stable appearance of two complex cysts versus solid nodules as described. ??A follow-up ultrasound is recommend in 6 months. 2. ??Right breast benign findings. A follow up mammogram is recommended in one year as per the [employer]. CLASSIFICATION: ??BI-RADS 3 - PROBABLY B ENIGN FINDINGS ACR Breast Density: C- Heterogeneously d ense ResultCode: ??BR 3 C Patient will receive a reminder letter f rom our office approximately two weeks prior to the recommended follow up date. DISCLAIMER: ??According to the [employer] and the [employer], any patient with a lifetime risk assessment greater than 20% or patients with dense breasts (heterogeneously or extremely dense), may benefit from a dditional screening tests for breast cancer. Furth er screening tests for patients with dense breasts (heterogeneously or extremely dense) should be based upon the patient's breast cancer risk status. All patients , having their mammogram with [facility], with a lifetime risk assessment greater than 20% or with dense breasts, will be given the opportunity to meet with our certified breast health navigator to discuss their risk and further imaging options. Further screening tests include Ultrasou nd and MR (Magnetic Resonance) imaging. Dictated by: EDGAR PEREZ M.D. on 03/07/20 19 Transcribed by: NICK on 03/07/2019 01:22 P M cc: Procedure Note Edgar Perez MD - 03/07/2019 CLINICAL HISTORY: Screening mammogram. High risk. Dense br easts. Last Clinical Breast Exam: 12/2018 Tyrer-Cuzick Model 10-year risk: 8.2% (A verage: 2.5%) Tyrer-Cuzick Model lifetime risk: 34.3% (Average: 11.8%) COMPARISON: 03/05/2018, 01/31/2017 and mammograms. TECHNIQUE: Craniocaudal and oblique view s were obtained digitally. Craniocaudal views were reviewed by CAD. Digital Breast Tomosynthesis was obtained. FINDINGS: The breast tissue is heterogen eously dense, which could obscure detection of small masses. A right breast biopsy clip is seen. No dominant mass, suspicious microcalcif ication, architectural distortion or skin/nipple thickening or retraction is seen. There are no significant changes compare d to the prior study/studies. Screening breast ultrasound exam, dictat ed separately, was also performed given the dense breast parenchyma demonstrating stable appearance of two complex cysts versus solid nodules in the left breast with maximum sizes of 14 and 7 mm. No suspicious ultrasound features are seen. Within the right breast a biopsy clip is seen. IMPRESSION: 1. Left breast probable wander gn findings with stable appearance of two complex cysts versus solid nodules as described. A follow-up ultrasound is recommend in 6 months. 2. Right breast benign findings. A follow up mammogram is recommended in one year as per the [employer]. CLASSIFICATION: BI-RADS 3 - PROBABLY MARIAMA IGN FINDINGS ACR Breast Density: C- Heterogeneously d ense ResultCode: BR 3 C Patient will receive a reminder letter f rom our office approximately two weeks prior to the recommended follow up date. DISCLAIMER: According to the [employer] and the [employer], any patient with a lifetime risk assessment greater than 20% or patients with dense breasts (heterogeneously or extremely dense), may benefit from additional screening tests for breast cancer. Furth er screening tests for patients with dense breasts (heterogeneously or extremely dense) should be based upon the patient's breast cancer risk status. All patients, having their mammogram with [facility], with a lifetime risk assessment greater than 20% or with dense breasts, will be given the opportunity to meet with our certified breast health navigator to discuss their risk and further imaging options. Further screening tests include Ultrasou nd and MR (Magnetic Resonance) imaging. Dictated by: EDGAR PEREZ M.D. on 03/07/20 19 Transcribed by: NICK on 03/07/2019 01:22 P M cc: Performing Organization Address City/State/ZIP Code Phon e Number [facility] [employer] MRI breast bilateral without and with IV contrast (08/15/2018 1:00 PM EST) Anatomical Region Laterality Modality Breast Bilateral Magnetic Resonance Specimen Narrative EDELMIRA RODRIGUEZ - 08/15/2018 2:38 PM EST CLINICAL HISTORY: [...] Organization Address City/State/ZIP Code Phon e Number [facility] EDELMIRA RODRIGUEZ Ultrasound dense breast bilateral complete (03/05/2018 10:48 AM EDT) Anatomical Region Laterality Modality Breast Bilateral Ultrasound Specimen Narrative EDELMIRA RODRIGUEZ - 03/05/2018 11:32 AM EDT CLINICAL HISTORY: [...] recommended follow up date. Dictated by: ARASH CURIEL M.D. on 03/05/20 18 Transcribed by: yoel on 03/05/2018 11:31 A M cc: Procedure Note Arash Curiel MD - 03/05/2018 CLINICAL HISTORY: Screening Mammogram. [...] recommended follow up date. Dictated by: ARASH CURIEL M.D. on 03/05/20 18 Transcribed by: yoel on 03/05/2018 11:31 A M cc: Performing Organization Address City/State/ZIP Code Phon e Number [facility] BETHIA MICHAEL documented in this encounter Visit Diagnoses Diagnosis Encounter for screening mammogram for hi gh-risk patient - Primary Dense breasts Inconclusive mammogram Family history of breast cancer; sister age 45 Family history of malignant neoplasm of breast Breast cancer screening, high risk patie nt Screening mammogram for high-risk patien t Abnormal finding on breast imaging Encounter for screening mammogram for hi gh-risk patient Dense breasts Inconclusive mammogram Dense breasts Inconclusive mammogram Family history of breast cancer; sister age 45 Family history of malignant neoplasm of breast Breast cancer screening, high risk patie nt Screening mammogram for high-risk patien t Abnormal finding on breast imaging documented in this encounter Care Teams Barrel Leveler Relationship Specialty Start Date End Date Debbie De La Vega, PCP - General Family Medicine 06/05/[address] [phone] Lucy Webb, Consulting Physician Obstetrics and 06/08/[address] [place] [id number] documented as of this encounter
--- OUTSIDE RECORDS SUMMARY | 2022-01-24 17:11 | XMS_ITS | Encounter Summary ---
:1970 Author Organization [facility] Address [address] [place] [address] Care Team Providers Name Role Phone Krystle De Primary Care Provider Encounter Details Date Type Department Care Team Description 03/17/2020 Telephone [facility] Krystle Marte FNP 101 [facility] [address] [place], [place] [address] [place] [address] [phone] (Wo rk) Social History Tobacco Use Types [...] or relatives? How often do you attend jehovah's witness or Never 2020 jew services? Do you belong to any clubs or Yes 03/23/2021 organizations such as jehovah's witness groups, unions, fraternal or athletic groups, or [...] place to sleep or slept in a group home (including now)? Sex Assigned at Date Recorded Not on file documented as of this encounter Miscellaneous Notes Telephone Encounter - Sharona Pineda RN - 03/18/2020 10:24 AM EDT Done. Telephone Encounter - ASHIA Wall - 03/18/2020 10:12 AM EDT pls send letter, inform patient she is over due for PE and needs to call and make an appt documented in this encounter Plan of Treatment Upcoming Encounters Date Type Specialty Care Team Description 03/24/2022 Office Visit Family Medicine Krystle De F NP [address] [place] [address] (Wo rk) documented as of this encounter Visit Diagnoses Not on filedocumented in this encounter Care Teams Business Support Liaison Relationship Specialty Start Date End Date Krystle De FNP PCP - General Nurse Practitioner 02/05/[address] [phone] documented as of this encounter
--- OUTSIDE RECORDS SUMMARY | 2022-01-24 17:11 | XMS_ITS | Encounter Summary ---
:1970 Author Organization [facility] Address [address] [place] [address] Phone Care Team Providers Name Role Phone Lucy Webb MD Unavailable Mike Bernstein MD Primary Care Provider [phone] Kelly Gatica NP Unavailable Encounter Details Date Type Department Care Team Description 05/11/2021 Travel Social History Tobacco Use Types Packs/Day [...] / COVID-19? documented as of this encounter Functional Status [...] Visit General Surgery Kelly Gatica NP [address] [facility] [place] [address] (Wo rk) documented as of this encounter Visit Diagnoses Not on filedocumented in this encounter Care Teams Coloring Room Man Relationship Specialty Start Date End Date Mike Bernstein PCP - General Internal Medicine 12/28/[address] [place] [phone] Lucy Webb, Consulting Physician Obstetrics and 06/08/[address] [place] [phone] Kelly Gatica NP Nurse Practitioner Family Medicine 10/20/[address] [place] [address], [address] [place] [address] documented as of this encounter
--- OUTSIDE RECORDS SUMMARY | 2022-01-24 17:11 | XMS_ITS | Encounter Summary ---
:1970 Author Organization [facility] Address [address] [place] [address] Phone Care Team Providers Name Role Phone Lucy Webb MD Unavailable Mike Bernstein MD Primary Care Provider [phone] Encounter Details Date Type Department Care Team Description 03/18/2020 Orders Only Surgical Professiona ls Kelly Gatica NP Abnormal finding on [address] 4100 Medical breast imaging [place], [place] [address], [phone] [address] [place] [address] Social History Tobacco Use Types Packs/Day Years [...] Visit General Surgery Kelly Gatica, LOLA 4100 [facility], [address] [address] (Wo rk) documented as of this encounter Procedures Procedure Name Priority Date/Time Associated Diagnosis Comme nts VACUUM ASSIST US GUIDED STAT 03/30/2020 Abnormal finding on breast BREAST BIOPSY imaging documented in this encounter Results Vacuum assist ultrasound guided breast biopsy unilateral (03/30/2020) Anatomical Region Laterality Modality Breast Right Mammography Narrative This result has an attachment that is no t available. Performing Organization Address City/State/[facility] Phon e Number [facility]- documented in this encounter Visit Diagnoses Diagnosis Abnormal finding on breast imaging documented in this encounter Care Teams Manager Book Relationship Specialty Start Date End Date Mike Bernstein, JACQUE - General Internal Medicine 12/28/[address] [place] [phone] Lucy Webb, Consulting Physician Obstetrics and 06/08/[address] [place] [address] documented as of this encounter
--- OUTSIDE RECORDS SUMMARY | 2022-01-24 17:11 | XMS_ITS | Encounter Summary ---
:1970 Author Organization [facility] Address [address] [place] [address] Phone Care Team Providers Name Role Phone Lucy Webb MD Unavailable Mike Bernstein MD Primary Care Provider [phone] Reason for Referral MRI/CAT/PET Scan (Routine) - Closed Specialty Diagnoses / Procedures Referred By Contact Refer red To Contact Diagnoses Encounter for screening mammogram for high-risk patient Kelly Gatica NP Procedures MRI breast bilateral without and with IV contrast w/CAD [address] [place] [address], [address] [place], [place] [address] Referral ID Status Reason Start Date Expiration Date Visits Requ ested Visits Authorized [id number] Closed 09/14/2020 03/13/2021 1 1 adiology (Emergency) - Closed Specialty Diagnoses / Procedures Referred By Contact Refer red To Contact Diagnoses Dense breasts Abnormal finding on breast imaging Kelly Gatica NP Procedures Ultrasound dense breast bilateral complete [address] [place] [address], [address] [place], [place] [address] Referral ID Status Reason Start Date Expiration Date Visits Requ ested Visits Authorized [id number] Closed 03/19/2021 09/15/2021 1 1 Reason for Visit Reason Comments 1 Year Follow Up Encounter Details Date Type Department Care Team Description 03/17/2020 Office Visit [facility] Kelly Gatica NP Encounter for screening mammogram for hi gh-risk patient (Primary Dx); [facility] [facility] br [facility]; Services - [address], Abnormal findi ng on breast imaging [place] [address] [facility] [address] [address] [place], [place] [phone] (Work) [phone] Social History Tobacco Use Types Packs/Day Years [...] Sign Reading Time Taken Comments Blood Pressure 125/79 03/17/2020 3:08 PM EDT Pulse 62 03/17/2020 3:08 PM EDT Temperature - - Respiratory Rate - - Oxygen Saturation - - Inhaled Oxygen Concentration - - Weight 64.9 kg (143 lb) 03/17/2020 3:08 PM EDT Height 175.3 cm (5' 9) 03/17/2020 3:08 PM EDT Body Mass Index 21.12 03/17/2020 3:08 PM EDT documented in this encounter Functional [...] encounter Progress Notes Kelly Gatica, LOLA - 03/17/2020 3:00 PM EDT 03/17/20 Trina Fierro [id number] female 49 years Trina Fierro is a patient who is followed in our high risk breast cancer surveillance program. Pertinent History: Trina was initially seen 05/2017??referred by Dr Do office to establish breast care follow up. The she has had bilateral breast biopsies performed in the past which were negative. These are noted below. ?? She has a family history a sister who would been treated for breast cancer at the age of 45, she tells me her sister tested BRCA negative. ?? LEFT breast EXCISIONAL??biopsy??2015, Dr Do; ??benign tubular adenoma, no atypia ?? RIGHT breast 1200 position US core biopsy 05/2013??: Fibroadenoma LEFT breast 0600 position US core biopsy 05/2013:??Fibroadenoma ?? Family Cancer History:? Sister had breast cancer treated with mastectomy, chemo and radiation at age 45, she tested BRCA negative, father prostate cancer age 75 ?? Menstrual/ History:? Menarche age 12, 1st parity age 32, , use of oral contraceptives in the past ?? Social History:?? She is , she is the Arts Director at [employer], she has 2 children a son and a daughter, alcohol intake 3 to 4 glasses per week, nonsmoker ?? Subjective: HPI / Interval history: Trina Fierro is a very pleasant 49 yearsyo female here today for annual bilateral screening mammogram and dense breast ultrasound. She does have new sonographic findings today: Right breast at the 2 to 3 o'clock position in the retroareolar region there is a new cyst versus cluster of cysts measuring 0.6 x 0.4 x 0.5 cm. Right breast sonogram recommended in 6 months. No abnormality palpated in her right breast. Left breast with 2 stable nodules. Is a new nodule 7 o'clock position 4 to 5 cm from the nipple, irregular hypoechoic with some posterior shadowing and angulated margins measuring 0.5 x 0.5 x 0.5 cm. Ultrasound-guided biopsy is recommended. This nodule is slightly palpable. As noted above she has had multiple bilateral biopsies in the past, all of which have been benign. She is quite calm about needing another biopsy today. She does perform self breast/chest wall examination and notes no change. She denies feeling any new lumps, bumps, denies breast pain, tenderness or nipple discharge. Her appetite is good, she is eating and drinking well, no change in bowel pattern, no new headaches,no vertigo, no new shortness of breath, no new chest pains, no unintentional weight loss, and no newbony aches or pains that would be worrisome for metastatic disease. Current Meds: No current outpatient medications on [...] file Gets together: Not on file Attends jain service: Not on file Active member of [...] Negative. Hematological: Negative. Psychiatric/Behavioral: Negative. Objective: Vitals: 03/17/20 1508 BP: 125/79 Pulse: 62 Exam: Const: Appears pleasant. No signs of [...] reveals no focal deficits. Today's imaging reveals: CLINICAL HISTORY: History of bilateral abnormal imaging. Last Clinical Breast Exam:February 2019. Tyrer-Cuzick Model 10-year risk: 8.7% (Average: 2.6%) Tyrer- Cuzick Model lifetime risk: 34.5% (Average: 11.6%) ?? COMPARISON: 03/07/2019, 03/05/2018 01/31/2017 and 06/23/2016 ?? TECHNIQUE: Craniocaudal and oblique views were obtained digitally. Craniocaudal views were reviewed by CAD. Digital Breast Tomosynthesis was obtained. ?? FINDINGS: Bilateral mammogram: The breast tissue is heterogeneously dense, which could obscure detection of small masses. There is a biopsy marker clip noted within the superior right breast. Benign type calcifications are noted. ?? No dominant mass, suspicious microcalcification, architectural distortion or skin/nipple thickening or retraction is seen. ?? Dense breast screening ultrasound: Dense breast screening ultrasound of the same date demonstrates a new suspicious solid nodule withinthe left breast. Additionally there is a new complex cystic nodule versus cluster cyst in the right breast. There are two stable complex cystic versus solid nodules also noted within the left breast which are stable for greater than two years suggesting a benign etiology. ?? IMPRESSION: No mammographic evidence for malignancy. A follow up mammogram is recommended in one year as per the [employer]. ?? Dense breast sonogram of the same day demonstrates a new suspicious solid nodule within the left breast at the 7 o'clock position 4 to 5 cm from the nipple. Ultrasound-guided biopsy is recommended. A follow-up targeted right breast ultrasound in six months is recommended for a new complex cystic nodule versus cluster cyst. ?? CLASSIFICATION: BI-RADS 4 - SUSPICIOUS ABNORMALITY. ?? ACR Breast Density: C- Heterogeneously dense ?? ResultCode: BR 4 C CLINICAL HISTORY: Dense breasts. ?? COMPARISON: 03/07/2019 ?? FINDINGS: Ultrasound in all four quadrants, axillary tail, and the retroareolar region was performed. Screening ultrasound exam was performed given dense breast parenchyma. Echogenic breast tissue is seen bilaterally. ?? Right breast: At the two-3 o'clock position in the retroareolar region there is a lobular, hypoechoic complex cystversus cluster cysts with posterior through transmission and no internal vascularity measuring 0.6 x0.4 x 0.5 cm. This is new compared to the prior ultrasound. ?? There are additional benign appearing cysts noted within the right breast. ?? Left breast: At the five-6 o'clock position 2 to 3 cm from the nipple there is an oval, hypoechoic complex cysticversus solid nodule with no internal vascularity measuring 1.5 x 1.0 x 0.5 cm, previously measuring 1.4 x 1.0 x 0.4 cm. This is stable dating back to 03/05/2018. ?? At the 11 o'clock position 3 cm from the nipple there is an oval, hypoechoic complex cystic versus solid nodule with no internal vascularity measuring 0.7 x 0.7 x 0.3 cm, previously measuring 0.7 x 0.6x 0.4 cm. ?? At the 7 o'clock position 4 to 5 cm from the nipple there is a new irregular hypoechoic solid nodulewhich is taller than it is wide and has posterior shadowing and angulated margins measuring 0.5 x 0.5 x 0.5 cm. ?? IMPRESSION: Suspicious solid nodule within the left breast at the 7 o'clock position 4 to 5 cm from the nipple which is new compared to the prior ultrasound. Ultrasound-guided biopsy is recommended. ?? New complex cystic nodule versus cluster cyst in the right breast as measured above. Findings are probably benign. Follow-up targeted right breast ultrasound is recommended in six months for re-evaluation. Assessment / Plan: 1. Encounter for screening mammogram for high-risk patient 2. Dense breasts Ultrasound dense breast bilateral complete Ultrasound dense breast bilateral complete 3. Abnormal finding on breast imaging Ultrasound dense breast bilateral complete Ultrasound dense breast bilateral complete Assessment: Patient has new sonographic findings today as noted above of bilateral breasts. Ultrasound-guided biopsy recommended for nodule on her left breast 7 o'clock position. And short-term follow-up sonogram recommended for right breast cyst versus cluster of cysts at the 2 to 3 o'clock position. Patient will also be due for her 6-month interval breast MRI. Follow-up: 1. Patient has an area of moderate suspicion in her left breast, and ultrasound- guided biopsy is recommended. I did review the procedure with the patient. She is quite familiar as she has had multiple breast biopsies in the past. She is agreeable to plan and wishes to move forward with breast biopsy. I will call her with the results once they are available and schedule appropriate follow-up at that time. 2. We will schedule bilateral complete breast ultrasound in 6 months to follow bilateral nodules. I will see her in office same day. 3. MRI due in 6 months (August). We will order this today. She does tell me she [place] area. I will call her with the results once they are available. At today's appointment we discussed the physical [...] as appropriate. Signature: Kelly Gatica NP Date: March 17, 2020 Time: 3:42 PM This document or parts of this document, were dictated using [facility] speaking software. A reasonable attempt at proofreading has been made to minimize errors. Please call with any questions or corrections. documented in this encounter Plan of Treatment Upcoming Encounters Date Type Specialty Care Team Description 05/12/2022 Office Visit General Surgery Kelly Gatica NP [address] [place] [id number] (Wo rk) Scheduled Orders Name Type Priority Associated Diagnoses Order S chedule Ultrasound dense breast Imaging STAT Dense br easts Expected: 03/19/2021, bilateral complete Abnormal finding on Ex stewart: 03/18/2022 breast imaging documented as of this encounter Procedures Procedure Name Priority Date/Time Associated Diagnosis Comme nts MRI BREAST Routine 09/22/2020 9:30 AM Encounter for Results for this BILATERAL W WO EDT screening mammogram proced ure are in CONTRAST for high-risk the results patient section. documented in this encounter Results MRI breast bilateral without and with IV contrast w/CAD (09/22/2020 9:30 AM EDT) Anatomical Region Laterality Modality Breast Bilateral Magnetic Resonance Specimen Narrative [facility] MERGE - 10/20/2020 1:43 PM EDT CLINICAL HISTORY: ??Encounter screening for malignant neoplasm of breast. Family history of malignant neoplasm of breast in sister. Tyrer-Cuzick Model Lifetime risk 34.5%. COMPARISON: ??MRI from 09/03/2019 and 08/15, mammogram from 03/17/2020 TECHNIQUE: ??Routine breast MRI was perf ormed without and with IV contrast. ??13 of 15ml multihance 3D recons and CAD were utilized/performed. FINDINGS: ??Background enhancement is mi ld. There is heterogeneous fibroglandular tissue. Heart is enlarged. ??The localizer serie s is otherwise unremarkable. ??No extramammary disease is identified. RIGHT BREAST: There is a biopsy clip see n superiorly/posteriorly. ??There are multiple small benign-appearing enhancing foci. ??There are a few scattered cysts. ??There is no evidence for suspicious magno id or cystic mass. There is no abnormal ductal or parenchymal enhancement. No abnormal lym ph nodes are seen. LEFT BREAST: There is a biopsy clip in t he lateral left breast. ??There are multiple small benign-appearing enhancing foci. ??There are a few scattered cysts. ??Stable heterogeneously mildly enhancing n odule in the lateral breast measuring 1. 3 x 0.8 cm. ?? There is no evidence for suspicious florencio d or cystic mass. There is no abnormal ductal or parenchymal enhancement. No abnormal lymph nodes are seen. IMPRESSION: ??No evidence for malignancy in either breast. BI-RADS 2 - benign findings. Dictated by: NITO BOYD M.D. on 10/21/19 21 Transcribed by: yoel on 10/20/2020 01:42 P M cc: Procedure Note Nito Boyd MD - 10/20/2020 CLINICAL HISTORY: Encounter screening fo r malignant neoplasm of breast. Family history of malignant neoplasm of breast in sister. Tyrer-Cuzick Model Lifetime risk 34.5%. COMPARISON: MRI from 09/03/2019 and 019, mammogram from 03/17/2020 TECHNIQUE: Routine breast MRI was perfor med without and with IV contrast. 13 of 15ml multihance 3D recons and CAD were utilized/performed. FINDINGS: Background enhancement is mild . There is heterogeneous fibroglandular tissue. Heart is enlarged. The localizer series is otherwise unremarkable. No extramammary disease is identified. RIGHT BREAST: There is a biopsy clip see n superiorly/posteriorly. There are multiple small benign-appearing enhancing foci. There are a few scattered cysts. There is no evidence for suspicious solid or cystic mass. There is no abnormal ductal or parenchymal enhancement. No abnormal lym ph nodes are seen. LEFT BREAST: There is a biopsy clip in t he lateral left breast. There are multiple small benign-appearing enhancing foci. There are a few scattered cysts. Stable heterogeneously mildly enhancing nodule in the lateral breast measuring 1.3 x 0.8 cm. There is no evidence for suspicious florencio d or cystic mass. There is no abnormal ductal or parenchymal enhancement. No abnormal lymph nodes are seen. IMPRESSION: No evidence for malignancy i n either breast. BI-RADS 2 - benign findings. Dictated by: NITO BOYD M.D. on 10/21/19 21 Transcribed by: yoel on 10/20/2020 01:42 P M cc: Performing Organization Address City/State/ZIP Code Phon e Number [facility] EDELMIRA RODRIGUEZ documented in this encounter Visit Diagnoses Diagnosis Encounter for screening mammogram for hi gh-risk patient - Primary Dense breasts Inconclusive mammogram Abnormal finding on breast imaging documented in this encounter Care Teams Internal Revenue Agent Relationship Specialty Start Date End Date Mike Bernstein, PCP - General Internal Medicine 12/28/[address] [phone] Lucy Webb, Consulting Physician Obstetrics and 06/08/[address] [place] [phone] documented as of this encounter
--- OUTSIDE RECORDS SUMMARY | 2022-01-24 17:11 | XMS_ITS | Encounter Summary ---
:1970 Author Organization [facility] Address [address] [place] [address] Care Team Providers Name Role Phone Domitila Dean ASHIA Primary Care Provider Encounter Details Date Type Department Care Team Description 03/17/2020 Abstract [facility] Liza [address] [place] [address] Social History Tobacco Use Types Packs/Day Years [...] or relatives? How often do you attend pentecostal or Never 2020 rastafari services? Do you belong to any clubs or Yes 03/23/2021 organizations such as pentecostal groups, unions, fraternal or athletic groups, or [...] place to sleep or slept in a long term (including now)? Sex Assigned at Date Recorded [...] Visit Family Medicine Krystle De F NP [address] [place] [address] (Wo rk) documented as of this encounter Procedures Procedure Name Priority Date/Time Associated Diagnosis Comme nts MAMMO BREAST SCREENING Routine 03/17/2020 8:34 AM EDT BILATERAL documented in this encounter Results Mammogram breast screening bilateral (03/17/2020 8:34 AM EDT) Anatomical Region Laterality Modality Breast Bilateral Mammography Narrative This result has an attachment that is no t available. Historical Provider MD HER BI PROCEDURES documented in this encounter Visit Diagnoses Not on filedocumented in this encounter Care Teams Electrical Systems Designer Relationship Specialty Start Date End Date Krystle De FNP PCP - General Nurse Practitioner 02/05/[address] [place] [address] documented as of this encounter
--- NOTE | 2022-01-24 17:15 | DI.RAD_ITS ---
Exam(s) XR RIBS RT W PA LAT CHEST EXAM: XR RIBS RT W PA LAT CHEST CLINICAL HISTORY: right rib pain, fall biking TECHNIQUE: 2D digital imaging was performed. COMPARISON: No exams were available for comparison FINDINGS: RIGHT RIB CAGE: Five views There are no acute rib fractures evident. No lytic rib lesions identified. CHEST X-RAY TWO VIEWS: No lung contusion or pneumothorax. There is no pleural effusion evident. Heart size is normal and there is no significant mediastinal widening. IMPRESSION: 1. No rib fractures evident. Also no obvious rib lesions. 2. No ipsilateral lung nor pleural abnormality evident. No pneumothorax. DATA REPOSITORY: RADIATION DOSE DELIVERED:
--- NOTE | 2022-01-24 17:15 | DI.RAD_ITS ---
Exam(s) XR SHOULDER RT COMPLETE 2+V EXAM: XR SHOULDER RT COMPLETE 2+V CLINICAL HISTORY: right shoulder pain, fall biking. TECHNIQUE: 2D digital imaging was performed. COMPARISON: No exams were available for comparison FINDINGS: Five views There is 1.4 cm length by 0.2 cm osteophytic sliver off the superior aspect of the outer 3rd of the c lavicle, possibly an avulsion injury at this level. Other possibly that this is artifact from overly ing clothing material. The AC joint is not distracted and the remainder of the clavicle appears unre markable. Glenohumeral joint unremarkable. No adjacent rib fractures. IMPRESSION: As above. Recommend repeat clavicle views clothing material removed DATA REPOSITORY: RADIATION DOSE DELIVERED:
--- NOTE | 2022-01-24 17:15 | DI.RAD_ITS ---
Exam(s) XR CLAVICLE RT EXAM: XR CLAVICLE RT CLINICAL HISTORY: fall biking right shoulder pain. TECHNIQUE: 2D digital imaging was performed. COMPARISON: No exams were available for comparison FINDINGS: Two views No evidence of fracture nor dislocation. No osseous lesions. Bone density normal. IMPRESSION: No fracture. DATA REPOSITORY: RADIATION DOSE DELIVERED:
--- NOTE | 2022-01-24 17:58 | DI.VRAD_ITS ---
PROCEDURE INFORMATION: Exam: XR Right Ribs Exam date and time: 01/24/2022 5:31 PM Age: 51 years old Clinical indication: Other: Right anterior rib pain, fall, biking; Patient HX: Right rib pain, fall, biking TECHNIQUE: Imaging protocol: Radiologic exam of the Right ribs. Views: 2 views. COMPARISON: No relevant images were readily available for comparison purposes. FINDINGS: Bones/joints: No acute fracture or dislocation. Soft tissues: Unremarkable. IMPRESSION: No acute fracture of dislocation. PROCEDURE INFORMATION: Exam: XR Chest Exam date and time: 01/24/2022 5:31 PM Age: 51 years old Clinical indication: Other: Right anterior rib pain, fall, biking; Patient HX: Right rib pain, fall, biking TECHNIQUE: Imaging protocol: Radiologic exam of the chest. Views: 2 views. COMPARISON: No relevant images were readily available for comparison purposes. FINDINGS: Lungs: Clear lungs. Pleural spaces: No sizable pleural effusion. No pneumothorax. Heart/Mediastinum: Cardiomediastinal silhouette is within normal limits. Bones/joints: No acute displaced fracture or dislocation. IMPRESSION: No acute cardiopulmonary process. Dictated and Authenticated by: Dread Norman MD. Ordering:CASTRO Bower MD
--- NOTE | 2022-01-24 17:58 | DI.VRAD_ITS ---
PROCEDURE INFORMATION: Exam: XR Right Clavicle, Complete Exam date and time: 01/24/2022 5:38 PM Age: 51 years old Clinical indication: Weakness; Patient HX: Right clavicle shoulder pain, fall while biking TECHNIQUE: Imaging protocol: Radiologic exam of the Right clavicle. Complete exam. Views: Any number of views. COMPARISON: CR XR RIBS RT W PA LAT CHEST 01/24/2022 5:31 PM FINDINGS: Bones/joints: No acute fracture or dislocation. Soft tissues: Unremarkable. IMPRESSION: No acute fracture of dislocation. Dictated and Authenticated by: Dread Norman MD. Ordering:CASTRO Bower MD
--- NOTE | 2022-01-24 18:00 | DI.VRAD_ITS ---
PROCEDURE INFORMATION: Exam: XR Right Shoulder Exam date and time: 01/24/2022 5:40 PM Age: 51 years old Clinical indication: Other: Right shoulder pain, fall while biking TECHNIQUE: Imaging protocol: Radiologic exam of the Right shoulder. Views: 2 or more views. COMPARISON: CR XR CLAVICLE RT 01/24/2022 5:38 PM FINDINGS: Bones/joints: Please note that there is overlying material along the shoulder which limits evaluation. A linear density seen projecting along the superior aspect of the distal clavicle is suspected to represent overlying material. no definite acute fracture or dislocation. Soft tissues: Unremarkable. IMPRESSION: Suspected overlying material seen along the superior aspect of the right distal clavicle. Please correlate with physical exam and with point tenderness to this area. If there is high clinical concern for acute fracture a repeat exam after removal of all superficial overlying material along the right shoulder would be recommended for better evaluation. CT may also be obtained as clinically appropriate. Dictated and Authenticated by: Dread Norman MD. Ordering:CASTRO Bower MD
== END ==
LOC: LBN 17:23 → DI 17:25
PROVIDERS: Visit Provider Physician Assistant
DX: M25.511 Pain in right shoulder (principal); R07.81 Pleurodynia; G89.11 Acute pain due to trauma; R53.1 Weakness; W19.XXXA Unspecified fall, initial encounter; Y93.55 Activity, bike riding; Y99.8 Other external cause status
CPT/HCPCS: 71046; 71100; 73000; 73030